=== PATIENT | male | born 1945 | race African-American/Black ===

== ENCOUNTER 2016-08-30 10:09 | Day surgery (SDC) | payer MEDICARE, OTHER ==
[~2016-08-30] VITALS: Ht 170.2 cm; Wt 67.1 kg
[2016-08-30] VITALS (10 sets, daily range): BP systolic 108–119; BP diastolic 67–85; PULSE 50–102; RESP 13–20; Ht 170.2 cm; Wt 67.1 kg
[~2016-08-30 10:09] MED LIST: ADV10050 INH; ALBU8.5H3 INH; ASPI-535 PO; ATOR40TA68 PO; BACL20TA PO; CLOP75TA27 PO; DEXL60CA2 PO; DOCU-144 PO; FINA5TAB4 PO; FLUT16SP17 NASAL; HYDR-762 PO; ISOS60TA52 PO; KEN25O TOP; LORA-186 PO; METO-448 PO; MUPI30OI TOP; NITR0.4T6 SL; NYST1000 PO; OMEG-135 PO; RANI150T5 PO; RANO10002 PO; SOD CHLORIDE 0.9% 1,000 ML IV SCH; TAMS0.4C2 PO; TIOT18CA INH; ZOLP10TA PO
[2016-08-30] MEDS ORDERED: GABA100C14 PO (10:49)
[2016-08-30 11:35] LABS: ADD SCAN DIFF NO
[2016-08-30 11:44] LABS: BASOPHILS % 0.8 % (0.0-2.0); EOSINOPHILS # 0.1 10^3/ul (0.0-0.5); EOSINOPHILS % 2.5 % (0.0-7.0); HEMATOCRIT 42.4 % (42.0-52.0); HEMOGLOBIN 14.6 g/dl (14.0-18.0); LYMPHOCYTES # 1.3 10^3/ul (0.8-2.9); LYMPHOCYTES % 24.8 % (15.0-51.0); MEAN CORPUSCULAR HGB CONC 34.4 g/dl (32.0-37.0); MEAN PLATELET VOLUME 9.8 fl (7.4-10.4); MONOCYTE # 0.6 10^3/ul (0.3-0.9); MONOCYTES % 10.6 % (0.0-11.0); NEUTROPHIL # 3.2 10^3/ul (1.6-7.5); NEUTROPHILS % 60.9 % (39.0-77.0); PLATELET COUNT 201 10^3/UL (140-415); RED BLOOD COUNT 4.71 10^6/ul (4.70-6.10); RED CELL DISTRIBUTION WIDTH 13.3 % (11.5-14.5); WHITE BLOOD COUNT 5.2 10^3/ul (4.8-10.8)
[2016-08-30 11:54] LABS: INR 0.93; PROTIME 12.5 Sec (12.2-14.2)
[2016-08-30 11:55] LABS: PARTIAL THROMBOPLASTIN TIME 32.1 Sec (25.0-35.0)
[2016-08-30 12:00] LABS: CREATINE KINASE 98 IU/L (23-200)
[2016-08-30 12:13] LABS: CK-MB 0.72 ng/ml (0.0-2.4); TROPONIN-I < 0.012 ng/ml (0.00-0.12)
[2016-08-30] MEDS ORDERED: LIDOCAINE 1% (MDV) 20 ML INJ ONE (13:08)
[2016-08-30] MEDS ORDERED: MIDAZOLAM 1 MG/ML 2 ML INJ ONE (13:08)
[2016-08-30] MEDS ORDERED: FENTAnyl 50 MCG/ML VIAL ONE (13:08)
[2016-08-30] MEDS ORDERED: IODIXANOL LOCM 100 ML BTL ONE (13:08)
[2016-08-30] MEDS ORDERED: NITROGLYCERIN (IC) 100 MCG/ML INJ ONE (13:37)
[2016-08-30] MEDS ORDERED: VERAPAMIL 5 MG INJ ONE (13:37)
[2016-08-30] MEDS ORDERED: SOD CHLORIDE 0.9% 1,000 ML IV SCH (13:53)
--- NOTE | 2016-08-30 14:04 | OPR ---
Date/Time of Note Date/Time of Note DATE: 08/30/16 TIME: 13:56 Operative Report Procedure Date: Aug 30, 2016 Operative\Procedure Findings Procedure performed: 1. Left heart catheterization, selective right and left coronary angiogram 2. right femoral angiogram and closure of the right femoral artery using a Starclose device 3. moderate sedation for more than 45 minutes. Transmission Systems Operator: Rhonda Hill MD Indication:: Severe dyspnea on exertion chest pain and poor exercise tolerance abnormal stress test known coronary artery disease Findin. Left main coronary artery: Is large and severely aneurysmal with no significant obstructive disease 2. Left anterior descending artery: Its a very large and aneurysmal vessel and goes around the apex. It has nonobstructive stenosis proximally, and nonobstructive stenosis of the mid LAD but severely aneurysmal with poor flow due to aneurysm 3. Left circumflex artery: Is nondominant. It has 30 % stenosis. It is tortuous 4. Right coronary artery: Is a dominant vessel. It has severe aneurysmal disease proximally and patent stent at the distal RCA and posterolateral artery 5. Ramus intermediate is a moderate sized vessel with no flow-limiting obstruction 6. LV pressure: 113/10; Aortic pressure by pull back is 117/66 ejection fraction is about 50% with basal inferior wall hypokinesis. Written informed consent with obtained after risks benefits and alternatives discussed with the patient in detail. risks including but not limited to risk of infection vascular complications, bleeding complications, PR stroke arrhythmia renal failure at even were discussed with the patient in detail. Patient was brought into the cardiac sugar laboratory assistant and placed in supine position. Right and left groin area was prepped and draped in regular sterile fashion and then he was in anesthetized using 1% lidocaine. Right femoral artery was cannulated and using modified seldinger technique a 6 Azeri sheath was placed in the right femoral artery. Right femoral angiogram was performed. JL4 catheter was advanced and engaged into the left main coronary artery and angiographic view was obtained. The JR4 catheter was advanced and engaged right coronary artery angiographic view was obtained. Pigtail was advanced to engage the left ventricle hemodynamics was recorded, LV gram was done and by pullback aortic pressure was measured Right femoral artery was closed using a Star close device. Manual pressure was applied Patient tolerated procedure well with no complication. Patient is to be transferred to recovery room in stable condition. contrast used: 50 cc Conclusions: Severely aneurysmal disease with no flow-limiting obstruction Recommendations: Aggressive medical therapy RHONDA HILL MD Aug 30, 2016 14:03
[2016-08-30] MEDS ORDERED: morphine 2 MG INJ IV PRN (16:00)
== END 2016-08-30 18:14 | disposition home or self-care (01) ==
LOC: SDS 10:09
PROVIDERS: ATTEND Internal Medicine Interventional Cardiology
DX: I25.10 Atherosclerotic heart disease of native coronary artery without angina pectoris (principal); R94.39 Abnormal result of other cardiovascular function study; E78.5 Hyperlipidemia, unspecified; I10 Essential (primary) hypertension; J44.9 Chronic obstructive pulmonary disease, unspecified
CPT/HCPCS: 82550; 82553; 84484; 85025; 85610; 85730; 93458; C1760; C1769; C1887; C1894; J1644; J2250; J2270; J3010; Q9967

== ENCOUNTER → 2016-09-05 | Outpatient (CLI) | payer MEDICARE, OTHER ==
[~2016-09-05] MED LIST changes: +GABA100C14 PO; -KEN25O TOP; -MUPI30OI TOP; -NYST1000 PO; -SOD CHLORIDE 0.9% 1,000 ML IV SCH
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
== END | disposition home or self-care (01) ==
LOC: C/S 16:42
PROVIDERS: ATTEND Internal Medicine Pulmonary Disease
DX: R06.02 Shortness of breath (principal); J44.9 Chronic obstructive pulmonary disease, unspecified
CPT/HCPCS: 71250

== ENCOUNTER → 2017-03-02 | Outpatient (CLI) | END | disposition home or self-care (01) ==

== ENCOUNTER 2017-03-30 19:52 | Inpatient (IN) | END 2017-04-10 19:42 | DRG 871 ==

== ENCOUNTER 2018-08-28 11:22 | Observation (INO) | payer MEDICARE, OTHER ==
[~2018-08-28] VITALS: Ht 157.5 cm; Wt 70.0 kg
[~2018-08-28 11:22] MED LIST changes: -ADV10050 INH; +ALBU2.5V3 NEB; -ALBU8.5H3 INH; +ALBU90AE INHALATION; -ASPI-535 PO; +BUDE6HFA INHALATION; -CLOP75TA27 PO; -DOCU-144 PO; +DOCU-159 PO; +FLUC100T PO; +HYDR-3980 PO; -HYDR-762 PO; +ISOS60TA PO; -ISOS60TA52 PO; -LORA-186 PO; -METO-448 PO; +METO5TAB2 PO; -NITR0.4T6 SL; -RANI150T5 PO; +RIVA15TA PO; -TIOT18CA INH; +TIOT18CA INHALATION; -ZOLP10TA PO; +ZOLP10TA5 PO
[2018-08-28 11:32] VITALS: Ht 157.5 cm; Wt 70.0 kg
--- NOTE | 2018-08-28 12:58 | ERD ---
ER Documentation Chief Complaint Chief Complaint CWP X 4 DAYS HPI This is a 73-year-old male with a past medical history of hypertension, hyperlipidemia, coronary artery disease with a previous NV status post stenting, previous PE on Xarelto, peripheral vascular disease, COPD who is presenting with 4 days of waxing and waning sharp aching left-sided chest radiating to the back pain. The patient denies any diaphoresis. He denies shortness of breath. He has not been lightheaded or dizzy. He denies any nausea or vomiting. The patient denies feeling sick recently. The patient denies fever or chills. The patient has had no headache or vision changes. The patient does not endorse neck or back pain. The patient denies abdominal pain. The patient denies changes to bowel movements or urination. The patient has had no focal deficits. The patient has had no weakness or numbness or tingling to the face or extremities. ROS All systems reviewed and are negative except as per history of present illness. Medications Home Meds Reported Medications Baclofen* (Baclofen*) 20 Mg Tablet, 20 MG PO BID, TAB 08/28/18 Ipratropium-Albuterol (Ipratropium-Albuterol) 0.5-3 Mg/3 Ml Ampul.neb, 3 ML INHALATION DAILY, #30 VIAL 08/28/18 Dexlansoprazole (Dexilant) 60 Mg Cap., 60 MG PO DAILY, #30 CAP 08/28/18 Ranitidine Hcl* (Ranitidine Hcl*) 300 Mg Tablet, 300 MG PO HS, #30 TAB 08/28/18 Ondansetron Hcl* (Zofran*) 4 Mg Tab, 4 MG PO Q6H PRN for NAUSEA AND OR VOMITING, TAB 08/28/18 Fluticasone-Vilanterol (Breo Ellipta Inhaler) 100-25 Mcg/Actuation Aer.powFaridaba, 1 PUFF INHALATION DAILY, #1 INHALER 08/28/18 Finasteride* (Finasteride*) 5 Mg Tablet, 5 MG PO DAILY, TAB 08/28/18 Tamsulosin Hcl* (Flomax*) 0.4 Mg Cap.er.24h, 0.4 MG PO BID, CAP 08/28/18 Fluticasone Propionate* (Fluticasone Propionate* Nasal) 50 Mcg/[place] - 16 Gm [place].susp, 1 SPRAY NASAL DAILY, #1 BOTTLE TO EACH NOSTRIL 08/28/18 Tiotropium [place]* (Spiriva*) 18 Mcg Cap.w.dev, 1 CAP INHALATION DAILY, #30 CAP 08/28/18 Pantoprazole* (Pantoprazole*) 40 Mg Tablet.dr, 40 MG PO AC BREAKFAST, TAB 08/28/18 Gabapentin* (Gabapentin*) 100 Mg Capsule, 100 MG PO DAILY, #90 CAP 08/28/18 Rivaroxaban* (Xarelto*) 20 Mg Tablet, 20 MG PO WITH DINNER, TAB 08/28/18 Albuterol Sulfate* (Ventolin HFA*) 18 Gm Hfa.aer.ad, 2 PUFF INHALATION Q4H, #1 INHALER 08/28/18 Atorvastatin* (Atorvastatin*) 40 Mg Tablet, 40 MG PO QHS, #30 TAB 08/28/18 Metoprolol Succinate* (Toprol XL*) 25 Mg Tab.sr.24h, 12.5 MG PO DAILY, #30 TAB 08/28/18 Hydrocodone/Acetaminophen (Kim 10-325 Tablet) 1 Each Tablet, 1 EACH PO BID, TAB 08/28/18 Zolpidem Tartrate* (Zolpidem Tartrate*) 10 Mg Tablet, 10 MG PO QHS PRN for INSOMNIA, #30 TAB 08/28/18 Lorazepam* (Lorazepam*) 1 Mg Tablet, 1 MG PO BID PRN for ANXIETY, #30 TAB 08/28/18 Ranolazine* (Ranexa*) 1,000 Mg Tab.sr.12h, 1000 MG PO Q12, TAB 08/28/18 Cholecalciferol* (Vitamin D*) 400 Unit Tablet, 400 UNIT PO DAILY, TAB 08/28/18 Discontinued Reported Medications Docusate Sodium* (Docusate Sodium*) 100 Mg Capsule, 1 CAP PO DAILY, #30 CAP 03/30/17 Gabapentin* (Gabapentin*) 100 Mg Capsule, 100 MG PO QHS, #90 CAP 03/30/17 Metoclopramide Hcl* (Metoclopramide Hcl*) 5 Mg Tablet, 5 MG PO Q6H PRN for NAUSEA AND OR VOMITING, TAB 03/30/17 Zolpidem Tartrate* (Zolpidem Tartrate*) 10 Mg Tablet, 10 MG PO QHS PRN for INSOMNIA, #30 TAB 03/30/17 Jay-3 Fatty Acids/Fish Oil (Fish Oil 1,000 mg Capsule) 1 Each Capsule, 2 EACH PO DAILY, CAP 03/30/17 Albuterol Sulfate* (Albuterol Sulfate* Neb) 0.083%-3 Ml Neb, 2.5 MG NEB QID PRN for WHEEZING AND SOB, #30 VIAL 03/30/17 Tiotropium [place]* (Spiriva*) 18 Mcg Cap.w.dev, 1 CAP INHALATION DAILY, #30 CAP 03/30/17 Albuterol Sulfate (Proair Respiclick) 90 Mcg Aer.pow.ba, 2 PUFFS INHALATION NEEDED, BOTTLE 03/30/17 Budesonide-Formoterol Fumarate* (Symbicort*) 160-4.5 Hfa.aer.ad, 2 PUFF INHALATION BID, #1 EACH 03/30/17 Fluticasone Propionate* (Fluticasone Propionate* Nasal) 50 Mcg/[place] - 16 Gm [place].susp, 2 SPRAY NASAL BID, #1 BOTTLE TO EACH NOSTRIL 03/30/17 Dexlansoprazole (Dexilant) 60 Mg , 60 MG PO DAILY, #30 CAP 03/30/17 Baclofen* (Baclofen*) 20 Mg Tablet, 20 MG PO BID, TAB 03/30/17 Hydrocodone/Acetaminophen (Kim 10-325 Tablet) 1 Each Tablet, 1 EACH PO NEEDED, TAB 03/30/17 Finasteride* (Finasteride*) 5 Mg Tablet, 5 MG PO DAILY, TAB TAKE 1 OR 2 TIMES A DAY 03/30/17 Tamsulosin Hcl* (Tamsulosin Hcl*) 0.4 Mg Cap.er.24h, 0.4 MG PO DAILY, CAP TAKE 1 OR 2 TIMES A DAY 03/30/17 Isosorbide Mononitrate* (Isosorbide Mononitrate*) 60 Mg Tab.er.24h, 60 MG PO DAILY, TAB 03/30/17 Atorvastatin* (Atorvastatin*) 40 Mg Tablet, 40 MG PO QHS, #30 TAB 03/30/17 Ranolazine* (Ranexa*) 1,000 Mg Tab.sr.12h, 1000 MG PO Q12, TAB 03/30/17 Discontinued Scripts Rivaroxaban* (Xarelto*) 15 Mg Tablet, 15 MG PO BID WITH MEALS for 21 Days, #42 TAB Prov:AMANDA JONES 04/07/17 Fluconazole* (Diflucan*) 100 Mg Tablet, 100 MG PO DAILY for 30 Days, #30 TAB Prov:AMANDA JONES 04/07/17 Allergies Allergies: Coded Allergies: No Known Allergies (Verified Allergy, Mild, 08/28/18) PMhx/Soc History of Surgery: Yes (CARDIAC STENTS X3, HIP SURGERY, BACK & LEFT KNEE SX, HERNIA REPAIR) Anesthesia Reaction: No Hx Neurological Disorder: No Hx Respiratory Disorders: Yes (COPD, PE) Hx Cardiac Disorders: Yes (NV, HTN, DYSLIPIDEMIA, PVD) Hx Psychiatric Problems: No Hx Miscellaneous Medical Probl: Yes (See EMR) Hx Alcohol Use: No Hx Substance Use: No Hx Tobacco Use: Yes FmHx Family History: No diabetes Physical Exam Vitals Vital Signs Date Temp Pulse Resp B/P (MAP) Pulse Ox O2 O2 Flow FiO2 Time Delivery Rate 08/28/18 98.7 77 20 144/99 99 Room Air 17:28 (114) 08/28/18 69 18 133/106 99 Room Air 15:00 (115) 08/28/18 58 20 119/97 99 Room Air 14:00 (104) 08/28/18 Nasal 2 13:01 Cannula 08/28/18 70 21 138/95 99 Room Air 13:00 (109) 08/28/18 98.1 81 18 137/94 99 11:32 (108) Physical Exam Const: No apparent distress, well-developed, well-nourished Head: Normocephalic, Atraumatic Eyes: Normal Conjunctiva. Extraocular movements intact. Pupils equal, round and reactive to light ENT: Normal External Ears, Nose. Dry mucous membranes. Neck: Full range of motion. No meningismus. Resp: Clear to auscultation bilaterally, No wheezes, rales or rhonchi Cardio: Regular rate and rhythm. No murmurs, rubs or gallops Abd: Soft, non tender, non distended. Normal bowel sounds Skin: No petechiae or rashes Back: No midline tenderness. No CVA tenderness Ext: No cyanosis, or edema Neur: Awake and alert, oriented 4. Cranial nerves intact. No facial droop. Normal strength, sensation and coordination. Psych: Normal Mood and Affect Result Diagram: 08/28/18 1250 08/28/18 1250 Results 24 hrs Laboratory Tests Test 08/28/18 12:50 White Blood Count 5.0 10^3/ul Red Blood Count 4.64 10^6/ul Hemoglobin 11.8 g/dl Hematocrit 36.0 % Mean Corpuscular Volume 77.6 fl Mean Corpuscular Hemoglobin 25.4 pg Mean Corpuscular Hemoglobin Concent 32.8 g/dl Red Cell Distribution Width 15.9 % Platelet Count 197 10^3/UL Mean Platelet Volume 9.6 fl Immature Granulocytes % 1.000 % Neutrophils % 61.6 % Lymphocytes % 24.4 % Monocytes % 11.2 % Eosinophils % 1.0 % Basophils % 0.8 % Nucleated Red Blood Cells % 0.0 /100WBC Immature Granulocytes # 0.050 10^3/ul Neutrophils # 3.1 10^3/ul Lymphocytes # 1.2 10^3/ul Monocytes # 0.6 10^3/ul Eosinophils # 0.1 10^3/ul Basophils # 0.0 10^3/ul Nucleated Red Blood Cells # 0.0 10^3/ul Sodium Level 140 mmol/L Potassium Level 4.7 mmol/L Chloride Level 107 mmol/L Carbon Dioxide Level 28 mmol/L Anion Gap 5 Blood Urea Nitrogen 14 mg/dl Creatinine 1.56 mg/dl Est Glomerular Filtrat Rate mL/min mL/min Glucose Level 91 mg/dl Calcium Level 9.0 mg/dl Troponin I < 0.012 ng/ml B-Type Natriuretic Peptide 93 PG/ML Current Medications Medications Dose Sig/Camilla Start Time Status Last (Trade) Ordered Route PRN Stop Time Admin Dose Reason Admin Sodium 100 ml @ ud STK-MED 08/28/18 DC 08/28/18 Chloride ONCE .ROUTE 13:53 08/28/18 14:13 13:54 Iohexol 150 ml STK-MED 08/28/18 DC 08/28/18 (Omnipaque ONCE .ROUTE 13:53 08/28/18 14:13 300mg/ ml) 13:54 Ondansetron 4 mg ER BRIDGE 08/28/18 HCl (Zofran PRN IV 16:00 Inj) NAUSEA/VOMITI 08/29/18 15:59 NG 650 mg ER BRIDGE 08/28/18 Acetaminophen PRN PO 16:00 (Tylenol .MILD PAIN 08/29/18 15:59 Tab) 1-3 OR TEMP 40 mg QHS PO 08/28/18 Atorvastatin 21:00 Calcium (Lipitor) Baclofen 20 mg BID PO 08/28/18 (Lioresal) 21:00 400 units DAILY PO 08/29/18 Cholecalcifer 09:00 ol (Vitamin D) Finasteride 5 mg DAILY PO 08/29/18 (Proscar) 09:00 Fluticasone 1 spray BID NASAL 08/28/18 Propionate 21:00 (Flonase 0.05% Nasal) 1 inh DAILY INH 08/29/18 Fluticasone/ 09:00 Vilanterol (Breo Ellipta 100-25 Mcg Inh) Gabapentin 100 mg DAILY PO 08/29/18 (Neurontin) 09:00 1 tab BID PO 08/28/18 Acetaminophen 21:00 / Hydrocodone Bitart (Kim (10/325)) Albuterol/ 3 ml Q4H RESP 08/28/18 Ipratropium THERAPY PRN 16:30 (Duoneb) NEB SHORTNESS OF BREATH Lorazepam 1 mg BID PRN 08/28/18 (Ativan) PO ANXIETY 16:30 Metoprolol 12.5 mg DAILY PO 08/29/18 Succinate 09:00 (Toprol Xl) 40 mg AC 08/29/18 Pantoprazole BREAKFAST 07:00 (Protonix PO Tab) Ranitidine 300 mg HS PO 08/28/18 DC HCl 21:00 08/28/18 (Zantac) 21:00 Ranolazine 1,000 mg Q12 PO 08/28/18 (Ranexa) 21:00 Rivaroxaban 20 mg WITH 08/28/18 (Xarelto) DINNER PO 18:00 Tamsulosin 0.4 mg BID PO 08/28/18 HCl 21:00 (Flomax) Tiotropium 1 inh DAILY INH 08/29/18 [place] 09:00 (Spiriva) Zolpidem 10 mg QHS PRN 08/28/18 Tartrate PO INSOMNIA 16:30 (Ambien) Amoxicillin 500 mg BID PO 08/28/18 21:00 (Amoxicillin) Sodium 1,000 ml @ [id number] IV 08/28/18 Chloride 75 mls/hr 16:24 IV Flush 3 ml PER 08/28/18 (NS 3 ml) PROTOCOL IV 16:30 Ondansetron 4 mg Q6H PRN 08/28/18 HCl (Zofran IV 16:30 Inj) NAUSEA/VOMITI NG 650 mg Q6H PRN 08/28/18 Acetaminophen PO .PAIN 1-3 16:30 (Tylenol OR TEMP Tab) 1 tab Q6H PRN 08/28/18 Acetaminophen PO .PAIN 4-6 16:30 / Hydrocodone Bitart (Kim (5/325)) Morphine 2 mg Q4H PRN 08/28/18 Sulfate IV .PAIN 16:30 (morphine) 7-10 Docusate 100 mg Q12H PRN 08/28/18 DC Sodium PO 16:30 08/28/18 (Colace) .CONSTIPATION 16:31 Magnesium 30 ml DAILY PRN 08/28/18 Hydroxide PO 16:30 (Milk Of Mag) .CONSTIPATION Sodium 2 spray BID PRN 08/28/18 Chloride NASAL 16:30 ([place]) congestion 1 tab Q5M PRN 08/28/18 Nitroglycerin SL ANGINA 16:30 (Nitroglyceri n (Sl Tab) 0.4 Mg) 1 tab BID PO 08/28/18 Senna/Docusat 21:00 e Sodium (Senokot-S) Procedures/MDM MDM The patient's presentation warrants further investigation. Previous medical records, if available, were reviewed. LABS The patient's laboratory testing was obtained and reviewed. No emergent treatment was required unless described below. CBC: Microcytic anemia, not emergent. No E/o systemic infection or thrombocytopenia Chemistry: No E/o severe acidosis or alkalosis or liver disease or diabetic ketoacidosis. Elevated creatinine indicating mild acute kidney injury. Troponin: No E/o acute ischemia BNP: No E/o heart failure EKG EKG read by me: Rate/Rhythm: Regular rate and rhythm at a rate of 81 bpm Intervals: Normal [place]: Normal Impression: No evidence of acute ischemia or arrhythmia IMAGING Imaging and Radiology interpretation reviewed. CXR FINDINGS: The cardiomediastinal silhouette is within normal limits. No focal pulmonary consolidations. There is no evidence of significant pleural effusion or pneumothorax. There are degenerative changes of the spine. Redemonstrated left shoulder arthroplasty. IMPRESSION: No radiographic evidence of acute cardiopulmonary disease. Electronically viewed and signed by Cam Mayers Physician on 08/28/2018 13:18 CTA Chest COMPARISON: CT CHEST 03/20/2018; CT CHEST 08/31/2017; CT CHEST 05/10/2017; CT CHEST 03/02/2017 FINDINGS: PULMONARY ARTERIES: Normal. No pulmonary embolism. AORTA: No acute findings. No thoracic aortic aneurysm. LUNGS: Advanced bullous emphysematous changes of the lungs is stable. No mass. PLEURAL SPACE: Normal. No significant effusion. No pneumothorax. HEART: Normal. No cardiomegaly. No significant pericardial effusion. No evidence of RV dysfunction. BONES/JOINTS: Left shoulder arthroplasty in place. Degenerative disk changes of the spine are present. No acute fracture. No dislocation. SOFT TISSUES: Normal. LYMPH NODES: Normal. No enlarged lymph nodes. KIDNEYS AND URETERS: Mild bilateral extrarenal pelvises. STOMACH AND BOWEL: Moderate retained feces throughout the transverse colon consistent with constipation. IMPRESSION: 1. Advanced bullous emphysematous changes of the lungs is stable. 2. Moderate retained feces throughout the transverse colon consistent with constipation. 3. Left shoulder arthroplasty in place. 4. No evidence of pulmonary emboli, aortic aneurysm or dissection. Electronically viewed and signed by .Mynor Forrest MD, MD on 08/28/2018 14:39 TREATMENT/DISPOSITION The patient presents with chest pain radiating to the back. He has a significant cardiac history including previous NV as well as previous extensive PE. The patient is followed by Dr. Baez and Dr. Sandoval. The patient's troponin and EKG are reassuring. Repeat troponin testing remains normal. I have very low suspicion for acute coronary syndrome. However, I was concerned about the possibility of a recurrent or worsening pulmonary embolism. The CTA revealed no evidence of PE or aortic aneurysm or dissection. I spoke with Dr. Sandoval regarding admission versus discharge of the patient. Despite the reassuring work-up, he felt that given his significant history, the patient would benefit from admission for more urgent evaluation by his specialists in the hospital. I do agree at this time. The patient's imaging studies reveal COPD, but otherwise does not demonstrate any emergent diagnoses. It does not reveal pneumonia or pneumothorax or pleural effusions or pulmonary edema. The patient does not have pneumomediastinum or signs concerning for esophageal tear or rupture. The patient has no clinical or radiographic signs of pericardial effusion or tamponade. The patient does not have pneumoperitoneum and I have decreased suspicion of viscus perforation as possible referred pain. The patient does not have a history of heart failure and I have low suspicion for this. ADMISSION At this time, I feel that the patient requires admission for further evaluation and management. The patient will be admitted to Panel in accordance with the patient's insurance. The patient was accepted by Dr. Mcneil to telemetry. Dr. Sandoval will evaluate the patient in the hospital. Dr. Mcneil will consult Dr. Baez from cardiology. Disclaimer: Inadvertent spelling and grammatical errors are likely due to EHR/dictation software use and do not reflect on the overall quality of patient care. Note that the electronic time recorded on this note does not necessarily reflect the actual time of the patient encounter. Departure Diagnosis: Primary Impression: Chest pain Chest pain type: unspecified Qualified Codes: R07.9 - Chest pain, unspecified Additional Impressions: Acute kidney injury Microcytic anemia Condition: Serious JAKE CORDOVA MD Aug 28, 2018 12:45
[2018-08-28] MEDS ORDERED: CHOL400T10 PO (13:26)
[2018-08-28] MEDS ORDERED: RANO10002 PO (13:26)
[2018-08-28] MEDS ORDERED: LORA1TAB PO (13:27)
[2018-08-28] MEDS ORDERED: ZOLP10TA5 PO (13:27)
[2018-08-28] MEDS ORDERED: HYDR-3980 PO (13:28)
[2018-08-28] MEDS ORDERED: ATOR40TA68 PO (13:29)
[2018-08-28] MEDS ORDERED: METO-335 PO (13:29)
[2018-08-28] MEDS ORDERED: RIVA20TA5 PO (13:30)
[2018-08-28] MEDS ORDERED: ALBU18HF INHALATION (13:30)
[2018-08-28] MEDS ORDERED: PANT40TA4 PO (13:31)
[2018-08-28] MEDS ORDERED: GABA100C14 PO (13:31)
[2018-08-28] MEDS ORDERED: TIOT18CA INHALATION (13:32)
[2018-08-28] MEDS ORDERED: TAMS-14 PO (13:33)
[2018-08-28] MEDS ORDERED: FLUT16SP17 NASAL (13:33)
[2018-08-28] MEDS ORDERED: FINA5TAB4 PO (13:34)
[2018-08-28] MEDS ORDERED: FLUT1AER INHALATION (13:34)
[2018-08-28] MEDS ORDERED: RANI300T PO (13:35)
[2018-08-28] MEDS ORDERED: ONDA4TAB13 PO (13:35)
[2018-08-28] MEDS ORDERED: DEXL60CA2 PO (13:36)
[2018-08-28] MEDS ORDERED: IOHEXOL 300MG/ML 150 ML BTL ONE (13:53)
[2018-08-28] MEDS ORDERED: SOD CHLORIDE 0.9% 100 ML ONE (13:53)
[2018-08-28] MEDS ORDERED: IPRA3AMP29 INHALATION (15:52)
[2018-08-28] MEDS ORDERED: BACL20TA PO (15:53)
[2018-08-28] MEDS ORDERED: ONDANSETRON 4 MG INJ IV PRN ×2 (16:00→16:30)
[2018-08-28] MEDS ORDERED: ACETAMINOPHEN 325 MG TAB PO PRN ×2 (16:00→16:30)
[2018-08-28] MEDS ORDERED: MAGNESIUM HYDROXIDE 30ML CUP PO PRN (16:30)
[2018-08-28] MEDS ORDERED: morphine 2 MG INJ IV PRN (16:30)
[2018-08-28] MEDS ORDERED: NACL 0.9% 3 ML SYG IV SCH (16:30)
[2018-08-28] MEDS ORDERED: NITROGLYCERIN (SL) 0.4 MG TAB SL PRN (16:30)
[2018-08-28] MEDS ORDERED: SALINE 0.65% 45 ML NAS SPRAY NASAL PRN (16:30)
[2018-08-28] MEDS ORDERED: HYDROCODONE/APAP (5/325) TAB PO PRN (16:30)
[2018-08-28] MEDS ORDERED: ALBUTEROL/IPRATROPIUM (NEB) 3 ML AMP NEB PRN (16:30)
[2018-08-28] MEDS ORDERED: LORAZEPAM 1 MG TAB PO PRN (16:30)
[2018-08-28] MEDS ORDERED: DOCUSATE SODIUM 100 MG CAP PO PRN (16:30)
[2018-08-28] MEDS ORDERED: ZOLPIDEM 5 MG TAB PO PRN (16:30)
--- NOTE | 2018-08-28 16:49 | HP ---
Date/Time of Note Date/Time of Note DATE: 08/28/18 TIME: 16:28 Assessment/Plan VTE Prophylaxis SCD applied (from Nsg): Yes Pharmacological prophylaxis: rivaroxaban Lines/Catheters IV Catheter Type (from Nrsg): Saline Lock Assessment/Plan Assessment/Plan 1. Acute chest pain - most likely musculoskeletal in nature - initial troponin negative and will trend - EKG negative for acute ST changes - Cardiology consulted for evaluation in setting of known heart disease - Nitro, morphine, O2 PRN 2. Acute sinusitis - appears to have been lingering for 1.5 months. Sees ENT as outpatient but has not been seen since these symptoms started - Will started on Amoxicillin and continue on nasal sprays - monitor for improvement 3. Acute shortness of breath - CTA chest noted with emphysematous changes but no dissection or PE noted - Pulmonology consultation placed for further evaluation - will continue PRN nebs 4. Acute renal failure - most likely secondary to prerenal given patient appears dehydrated - will give gentle fluids and avoid nephrotoxic agents - monitor for improvement 5. ambulatory dysfunction - PT/OT 6. h/o COPD - continue home bronchodilators - no wheezing appreciated so doubt exacerbation 7. HTN - continue home medications 8. CAD s/p PCI - continue home medications 9. h/o PE - CTA negative for PE - Will defer to Pulm on need for Xarelto 10. Anemia - will check iron levels - no need for transfusions at this time 11. Diet - Cardiac 12. DVT ppx - Xarelto 13. Disposition - Admit to telemetry for chest pain workup and evaluation of shortness of breath Result Diagram: 08/28/18 1250 08/28/18 1250 Results 24hrs Laboratory Tests Test 08/28/18 12:50 White Blood Count 5.0 # Red Blood Count 4.64 #L Hemoglobin 11.8 L Hematocrit 36.0 #L Mean Corpuscular Volume 77.6 L Mean Corpuscular Hemoglobin 25.4 L Mean Corpuscular Hemoglobin Concent 32.8 Red Cell Distribution Width 15.9 H Platelet Count 197 # Mean Platelet Volume 9.6 Immature Granulocytes % 1.000 H Neutrophils % 61.6 Lymphocytes % 24.4 Monocytes % 11.2 H Eosinophils % 1.0 Basophils % 0.8 Nucleated Red Blood Cells % 0.0 Immature Granulocytes # 0.050 H Neutrophils # 3.1 Lymphocytes # 1.2 Monocytes # 0.6 Eosinophils # 0.1 Basophils # 0.0 Nucleated Red Blood Cells # 0.0 Sodium Level 140 Potassium Level 4.7 Chloride Level 107 Carbon Dioxide Level 28 Anion Gap 5 Blood Urea Nitrogen 14 Creatinine 1.56 H Est Glomerular Filtrat Rate mL/min Glucose Level 91 Calcium Level 9.0 Troponin I < 0.012 B-Type Natriuretic Peptide 93 HPI/ROS Admit Date/Time Admit Date/Time 08/28/18 Hx of Present Illness 73 yo M with PMH HTN, CAD s/p PCI, HLD, PE on Xarelto, PVD, COPD presented to ED with worsening left sided chest discomfort radiating to his back. patient states the pain has been constant over the past 4-5 days. Worse with movement and activity, better after nitro and rest. Patient does admit to associate shortness of breath, nausea, and dizziness. Patient admits to constipation and some burning with urination. He denies any loss of consciousness or vomiting. Patient admits to fevers up to 103 with shortness of breath and general malaise about 1.5 months ago. He called Dr. Wallis office who prescribed a Zpack and Medrol dose pack with improvement in respiratory function. He admits to nasal congestion, facial pressure, and post nasal drip as well. Patient states he never really recovered and about 2 weeks ago was experiencing difficulty ambulat ing with worsening dyspnea on exertion. He was evaluated in the ED and CTA was performed which was negative for PE, dissection, or infectious cause. Patient was noted with negative initial troponin, EKG negative for acute ST changes, and no signs of CHF. Dr. Sandoval requested admission for cardiac and pulmonary evaluation. ROS All 12 systems reviewed and pertinent positives as per HPI. All others negative. Constitutional: fatigue, nausea Eyes: No discharge ENT: congestion, other (post nasal drip) Respiratory: cough, pleuritic pain, shortness of breath; No sputum, No wheezing Cardiovascular: chest pain, lightheadedness; No edema, No palpitations Gastrointestinal: constipation, nausea; No pain, No diarrhea, No vomiting Genitourinary: dysuria Musculoskeletal: back pain Skin: No laceration, No rash Neurologic: No confusion, No focal-weakness, No headache, No syncope Endocrine: dry skin Lymphatic: no complaints Psychological: nl mood/affect Immunologic: no complaints PMH/Family/Social Past Medical History Medical History: coronary artery disease, GERD, high cholesterol, hypertension, other (COPD, h/o PE) Medications Current Medications Ondansetron HCl (Zofran Inj) 4 mg ER BRIDGE PRN IV NAUSEA/VOMITING; Start 08/28/18 at 16:00; Stop 08/29/18 at 15:59 Acetaminophen (Tylenol Tab) 650 mg ER BRIDGE PRN PO .MILD PAIN 1-3 OR TEMP; Start 08/28/18 at 16:00; Stop 08/29/18 at 15:59 Coded Allergies: No Known Allergies (Verified Allergy, Mild, 08/28/18) Past Surgical History Past Surgical Hx: other (PCI, hip surgery, left shoulder surgery, back surgery, hernia repair) Family History Significant Family History: no pertinent family hx Social History Alcohol Use: none Smoking Status: Former smoker Drug Use: none Exam/Review of Systems Vital Signs Vitals Vital Signs Date Temp Pulse Resp B/P (MAP) Pulse Ox O2 O2 Flow FiO2 Time Delivery Rate 08/28/18 Nasal 2 13:01 Cannula 08/28/18 98.1 81 18 137/94 99 11:32 (108) Exam Exam General: She is currently sitting upright in bed in no acute distress. answering questions appropriately HEENT: Atraumatic, normocephalic. The pupils are equal, round and reactive. Extraocular motor are intact. tenderness maxillary and frontal sinus to palpation Neck: Supple with full range of motion. No rigidity or meningismus Chest: left lower chest wall discomfort Lungs: Diminished breath sounds, nonlabored breathing, no wheezing or rhonchi appreciated Heart: Normal S1-S2, Regular rhythm and rate. No murmur, S3, or S4 Abdomen: Soft , nontender, nondistended , bowel sounds are present. No guarding no rebound tenderness , No masses or organomegaly. No costovertebral temporal angle mass Extremities: Normal to inspection, no edema no cyanosis Neurologic: Normal mental status, speech normal, cranial nerves II through XII are intact, motor and sensory are intact, no focal weakness Skin: no rashes or lesions appreciated Additional Comments Home medications reviewed PROCEDURE: XR Chest CLINICAL INDICATION: Chest Pain. . TECHNIQUE: Frontal view of the chest COMPARISON: DR VEGA CHEST 04/10/2017; CT CHEST 04/07/2017; CR CHEST 12/16/2015; FINDINGS: The cardiomediastinal silhouette is within normal limits. No focal pulmonary consolidations. There is no evidence of significant pleural effusion or pneumothorax. There are degenerative changes of the spine. Redemonstrated left shoulder arthroplasty. IMPRESSION: No radiographic evidence of acute cardiopulmonary disease. RPTAT: KK Cam Mayers Physician Date Time Electronically viewed and signed by Cam Mayers Physician on 08/28/2018 13:18 PROCEDURE: CT Angiography Chest With Intravenous Contrast CLINICAL INDICATION: new CP rad to back, previous extensive PE on xarelto TECHNIQUE: Axial computed tomographic angiography images of the chest with intravenous contrast using pulmonary embolism protocol. Sagittal and coronal reformatted images were created and reviewed. CTDIvol (mGy) = 19.7, 11.1; total DLP (mGy- cm) = 443.6. This CT exam was performed using one or more of the following dose reduction techniques: automated exposure control, adjustment of the mA and/or kV according to patient size, and/or use of iterative reconstruction technique. DICOM images are available. 3D and MIP reconstructed images were created and reviewed. CONTRAST: 100 mL of Omnipaque-300 was administered intravenously. COMPARISON: CT CHEST 03/20/2018; CT CHEST 08/31/2017; CT CHEST 05/10/2017; CT CHEST 03/02/2017 FINDINGS: PULMONARY ARTERIES: Normal. No pulmonary embolism. AORTA: No acute findings. No thoracic aortic aneurysm. LUNGS: Advanced bullous emphysematous changes of the lungs is stable. No mass. PLEURAL SPACE: Normal. No significant effusion. No pneumothorax. HEART: Normal. No cardiomegaly. No significant pericardial effusion. No evidence of RV dysfunction. BONES/JOINTS: Left shoulder arthroplasty in place. Degenerative disk changes of the spine are present. No acute fracture. No dislocation. SOFT TISSUES: Normal. LYMPH NODES: Normal. No enlarged lymph nodes. KIDNEYS AND URETERS: Mild bilateral extrarenal pelvises. STOMACH AND BOWEL: Moderate retained feces throughout the transverse colon consistent with constipation. IMPRESSION: 1. Advanced bullous emphysematous changes of the lungs is stable. 2. Moderate retained feces throughout the transverse colon consistent with constipation. 3. Left shoulder arthroplasty in place. 4. No evidence of pulmonary emboli, aortic aneurysm or dissection. RPTAT:GG .Mynor Forrest MD, MD Date Time Electronically viewed and signed by .Mynor Forrest MD, MD on 08/28/2018 14:39 HARPREET LOOMIS MD Aug 28, 2018 16:41
--- NOTE | 2018-08-28 17:26 | CONS ---
Assessment/Plan Assessment/Plan Hospital Course (Demo Recall) 1. Chest pain appears to be nonanginal who is with a myocardial infarction. 2. History of coronary artery disease status post inferior ST elevation myocardial infarction 3. History of PCI of the right coronary artery 4. History of pulmonary embolus on appropriate therapy 5. Hypertension 6. Severe COPD 7. Dyslipidemia under good control Recommendations: We will rule out for myocardial infarction with serial cardiac enzymes. Continue home medications We will do a Lexiscan stress her tomorrow thoracic nonobstructive coronary artery disease Thank you for his referral. We will continue to follow along with you RHONDA TERRY MD [facility] Consultation Date/Type/Reason Admit Date/Time 08/28/18 Date of Consultation: Aug 28, 2018 Type of Consult Cardiology Reason for Consultation chestpain Requesting Provider: HARPREET LOOMIS MD Date/Time of Note DATE: 08/28/18 TIME: 17:22 Hx of Present Illness Interventional cardiology consultation Chief complaint chest pain History of present illness: Thank you for his referral. Physician from the patient from discussion with the physician for review of the old chart. Patient is also very well-known to me from outpatient workup. This is a 73-year-old gentleman with history of severe coronary artery disease status post STEMI/ND/multiple PCI of his right coronary artery who presented to emergency room because of left sided chest pain. Patient said over the past wee k he has had chest pain which is sharp left-sided last for hours worse with movement especially movement on his arm and also with breathing but not related to cough. Is moderate intensity and lasts for hours as mentioned. Allergies no known drug allergies. Medication was reviewed as per medical reconciliation which were personally reviewed. Social history patient has quit smoking. Family say no reported coronary artery disease. Past medical history: Coronary artery disease status post ND status post multiple PCI to his right coronary artery. COPD Dyslipidemia under good control Hypertension with episode of hypotension History of pulmonary embolus on Xarelto Review of system: As above only. Past Medical History Home Meds Reported Medications Baclofen* (Baclofen*) 20 Mg Tablet, 20 MG PO BID, TAB 08/28/18 Ipratropium-Albuterol (Ipratropium-Albuterol) 0.5-3 Mg/3 Ml Ampul.neb, 3 ML INHALATION DAILY, #30 VIAL 08/28/18 Dexlansoprazole (Dexilant) 60 Mg Cap.dr.mp, 60 MG PO DAILY, #30 CAP 08/28/18 Ranitidine Hcl* (Ranitidine Hcl*) 300 Mg Tablet, 300 MG PO HS, #30 TAB 08/28/18 Ondansetron Hcl* (Zofran*) 4 Mg Tab, 4 MG PO Q6H PRN for NAUSEA AND OR VOMITING, TAB 08/28/18 Fluticasone-Vilanterol (Breo Ellipta Inhaler) 100-25 Mcg/Actuation Aer.pow.ba, 1 PUFF INHALATION DAILY, #1 INHALER 08/28/18 Finasteride* (Finasteride*) 5 Mg Tablet, 5 MG PO DAILY, TAB 08/28/18 Tamsulosin Hcl* (Flomax*) 0.4 Mg Cap.er.24h, 0.4 MG PO BID, CAP 08/28/18 Fluticasone Propionate* (Fluticasone Propionate* Nasal) 50 Mcg/[place] - 16 Gm [place].susp, 1 SPRAY NASAL DAILY, #1 BOTTLE TO EACH NOSTRIL 08/28/18 Tiotropium Brogan* (Spiriva*) 18 Mcg Cap.w.dev, 1 CAP INHALATION DAILY, #30 CAP 08/28/18 Pantoprazole* (Pantoprazole*) 40 Mg Tablet.dr, 40 MG PO AC BREAKFAST, TAB 08/28/18 Gabapentin* (Gabapentin*) 100 Mg Capsule, 100 MG PO DAILY, #90 CAP 08/28/18 Rivaroxaban* (Xarelto*) 20 Mg Tablet, 20 MG PO WITH DINNER, TAB 08/28/18 Albuterol Sulfate* (Ventolin HFA*) 18 Gm Hfa.aer.ad, 2 PUFF INHALATION Q4H, #1 INHALER 08/28/18 Atorvastatin* (Atorvastatin*) 40 Mg Tablet, 40 MG PO QHS, #30 TAB 08/28/18 Metoprolol Succinate* (Toprol XL*) 25 Mg Tab.sr.24h, 12.5 MG PO DAILY, #30 TAB 08/28/18 Hydrocodone/Acetaminophen ([place] 10-325 Tablet) 1 Each Tablet, 1 EACH PO BID, TAB 08/28/18 Zolpidem Tartrate* (Zolpidem Tartrate*) 10 Mg Tablet, 10 MG PO QHS PRN for INSOMNIA, #30 TAB 08/28/18 Lorazepam* (Lorazepam*) 1 Mg Tablet, 1 MG PO BID PRN for ANXIETY, #30 TAB 08/28/18 Ranolazine* (Ranexa*) 1,000 Mg Tab.sr.12h, 1000 MG PO Q12, TAB 08/28/18 Cholecalciferol* (Vitamin D*) 400 Unit Tablet, 400 UNIT PO DAILY, TAB 08/28/18 Discontinued Reported Medications Docusate Sodium* (Docusate Sodium*) 100 Mg Capsule, 1 CAP PO DAILY, #30 CAP 03/30/17 Gabapentin* (Gabapentin*) 100 Mg Capsule, 100 MG PO QHS, #90 CAP 03/30/17 Metoclopramide Hcl* (Metoclopramide Hcl*) 5 Mg Tablet, 5 MG PO Q6H PRN for NAUSEA AND OR VOMITING, TAB 03/30/17 Zolpidem Tartrate* (Zolpidem Tartrate*) 10 Mg Tablet, 10 MG PO QHS PRN for INSOM MELVINA, #30 TAB 03/30/17 Volin-3 Fatty Acids/Fish Oil (Fish Oil 1,000 mg Capsule) 1 Each Capsule, 2 EACH PO DAILY, CAP 03/30/17 Albuterol Sulfate* (Albuterol Sulfate* Neb) 0.083%-3 Ml Neb, 2.5 MG NEB QID PRN for WHEEZING AND SOB, #30 VIAL 03/30/17 Tiotropium Brogan* (Spiriva*) 18 Mcg Cap.w.dev, 1 CAP INHALATION DAILY, #30 CAP 03/30/17 Albuterol Sulfate (Proair Respiclick) 90 Mcg Aer.pow.ba, 2 PUFFS INHALATION NEEDED, BOTTLE 03/30/17 Budesonide-Formoterol Fumarate* (Symbicort*) 160-4.5 Hfa.aer.ad, 2 PUFF INHALATION BID, #1 EACH 03/30/17 Fluticasone Propionate* (Fluticasone Propionate* Nasal) 50 Mcg/[place] - 16 Gm [place].susp, 2 SPRAY NASAL BID, #1 BOTTLE TO EACH NOSTRIL 03/30/17 Dexlansoprazole (Dexilant) 60 Mg , 60 MG PO DAILY, #30 CAP 03/30/17 Baclofen* (Baclofen*) 20 Mg Tablet, 20 MG PO BID, TAB 03/30/17 Hydrocodone/Acetaminophen ([place] 10-325 Tablet) 1 Each Tablet, 1 EACH PO NEEDED, TAB 03/30/17 Finasteride* (Finasteride*) 5 Mg Tablet, 5 MG PO DAILY, TAB TAKE 1 OR 2 TIMES A DAY 03/30/17 Tamsulosin Hcl* (Tamsulosin Hcl*) 0.4 Mg Cap.er.24h, 0.4 MG PO DAILY, CAP TAKE 1 OR 2 TIMES A DAY 03/30/17 Isosorbide Mononitrate* (Isosorbide Mononitrate*) 60 Mg Tab.er.24h, 60 MG PO DAILY, TAB 03/30/17 Atorvastatin* (Atorvastatin*) 40 Mg Tablet, 40 MG PO QHS, #30 TAB 03/30/17 Ranolazine* (Ranexa*) 1,000 Mg Tab.sr.12h, 1000 MG PO Q12, TAB 03/30/17 Discontinued Scripts Rivaroxaban* (Xarelto*) 15 Mg Tablet, 15 MG PO BID WITH MEALS for 21 Days, #42 TAB Prov:AMANDA JONES 04/07/17 Fluconazole* (Diflucan*) 100 Mg Tablet, 100 MG PO DAILY for 30 Days, #30 TAB Prov:AMANDA JONES 04/07/17 Medications Current Medications Ondansetron HCl (Zofran Inj) 4 mg ER BRIDGE PRN IV NAUSEA/VOMITING; Start 08/28/18 at 16:00; Stop 08/29/18 at 15:59 Acetaminophen (Tylenol Tab) 650 mg ER BRIDGE PRN PO .MILD PAIN 1-3 OR TEMP; Start 08/28/18 at 16:00; Stop 08/29/18 at 15:59 Atorvastatin Calcium (Lipitor) 40 mg QHS PO ; Start 08/28/18 at 21:00 Baclofen (Lioresal) 20 mg BID PO ; Start 08/28/18 at 21:00 Cholecalciferol (Vitamin D) 400 units DAILY PO ; Start 08/29/18 at 09:00 Finasteride (Proscar) 5 mg DAILY PO ; Start 08/29/18 at 09:00 Fluticasone Propionate (Flonase 0.05% Nasal) 1 spray BID NASAL ; Start 08/28/18 at 21:00 Fluticasone/ Vilanterol (Breo Ellipta 100-25 Mcg Inh) 1 inh DAILY INH ; Start 08/29/18 at 09:00 Gabapentin (Neurontin) 100 mg DAILY PO ; Start 08/29/18 at 09:00 Acetaminophen/ Hydrocodone Bitart ([place] (10/325)) 1 tab BID PO ; Start 08/28/18 at 21:00 Albuterol/ Ipratropium (Duoneb) 3 ml Q4H RESP THERAPY PRN NEB SHORTNESS OF BREATH; Start 08/28/18 at 16:30 Lorazepam (Ativan) 1 mg BID PRN PO ANXIETY; Start 08/28/18 at 16:30 Metoprolol Succinate (Toprol Xl) 12.5 mg DAILY PO ; Start 08/29/18 at 09:00 Pantoprazole (Protonix Tab) 40 mg AC BREAKFAST PO ; Start 08/29/18 at 07:00 Ranolazine (Ranexa) 1,000 mg Q12 PO ; Start 08/28/18 at 21:00 Rivaroxaban (Xarelto) 20 mg WITH DINNER PO ; Start 08/28/18 at 18:00 Tamsulosin HCl (Flomax) 0.4 mg BID PO ; Start 08/28/18 at 21:00 Tiotropium Brogan (Spiriva) 1 inh DAILY INH ; Start 08/29/18 at 09:00 Zolpidem Tartrate (Ambien) 10 mg QHS PRN PO INSOMNIA; Start 08/28/18 at 16:30 Amoxicillin (Amoxicillin) 500 mg BID PO ; Start 08/28/18 at 21:00 Sodium Chloride 1,000 ml @ 75 mls/hr [id number] IV ; Start 08/28/18 at 16:24 IV Flush (NS 3 ml) 3 ml PER PROTOCOL IV ; Start 08/28/18 at 16:30 Ondansetron HCl (Zofran Inj) 4 mg Q6H PRN IV NAUSEA/VOMITING; Start 08/28/18 at 16:30 Acetaminophen (Tylenol Tab) 650 mg Q6H PRN PO .PAIN 1-3 OR TEMP; Start 08/28/18 at 16:30 Acetaminophen/ Hydrocodone Bitart ([place] (5/325)) 1 tab Q6H PRN PO .PAIN 4-6; Start 08/28/18 at 16:30 Morphine Sulfate (morphine) 2 mg Q4H PRN IV .PAIN 7-10; Start 08/28/18 at 16:30 Magnesium Hydroxide (Milk Of Mag) 30 ml DAILY PRN PO .CONSTIPATION; Start 08/28/18 at 16:30 Sodium Chloride ([place]) 2 spray BID PRN NASAL congestion; Start 08/28/18 at 16:30 Nitroglycerin (Nitroglycerin (Sl Tab) 0.4 Mg) 1 tab Q5M PRN SL ANGINA; Start 08/28/18 at 16:30 Senna/Docusate Sodium (Senokot-S) 1 tab BID PO ; Start 08/28/18 at 21:00 Allergies: Coded Allergies: No Known Allergies (Verified Allergy, Mild, 08/28/18) Past Surgical History Past Surgical Hx: other (PCI, hip surgery, left shoulder surgery, back surgery, hernia repair) Social History Alcohol Use: none Smoking Status: Former smoker Drug Use: none Exam/Review of Systems Vital Signs Vitals Vital Signs Date Temp Pulse Resp B/P (MAP) Pulse Ox O2 O2 Flow FiO2 Time Delivery Rate 08/28/18 69 18 133/106 99 Room Air 15:00 (115) 08/28/18 2 13:01 08/28/18 98.1 11:32 Exam Exam General: Thin gentleman in no acute distress HEENT: NC/AT. pupils are equal. round. NECK: NO JVD. no stridor. CV: RRR. systolic murmur; no gallop or rubs. PULM: no wheezing or rhonchi. GI: SOFT, NT, ND, no rebound or guarding Extremity: trace B/L LE edema. no clubbing. neuro: awake and alert, OX3. Psych: calm and pleasant rectal: deferred : normal EKG was reviewed which showed normal sinus rhythm with no evidence of ischemia CT pulmonary angiogram done in the emergency room shows: 1. Advanced bullous emphysematous changes of the lungs is stable. 2. Moderate retained feces throughout the transverse colon consistent with constipation. 3. Left shoulder arthroplasty in place. 4. No evidence of pulmonary emboli, aortic aneurysm or dissection. Labs Result Diagram: 08/28/18 1250 08/28/18 1250 Results 24hrs Laboratory Tests Test 08/28/18 12:50 White Blood Count 5.0 # Red Blood Count 4.64 #L Hemoglobin 11.8 L Hematocrit 36.0 #L Mean Corpuscular Volume 77.6 L Mean Corpuscular Hemoglobin 25.4 L Mean Corpuscular Hemoglobin Concent 32.8 Red Cell Distribution Width 15.9 H Platelet Count 197 # Mean Platelet Volume 9.6 Immature Granulocytes % 1.000 H Neutrophils % 61.6 Lymphocytes % 24.4 Monocytes % 11.2 H Eosinophils % 1.0 Basophils % 0.8 Nucleated Red Blood Cells % 0.0 Immature Granulocytes # 0.050 H Neutrophils # 3.1 Lymphocytes # 1.2 Monocytes # 0.6 Eosinophils # 0.1 Basophils # 0.0 Nucleated Red Blood Cells # 0.0 Sodium Level 140 Potassium Level 4.7 Chloride Level 107 Carbon Dioxide Level 28 Anion Gap 5 Blood Urea Nitrogen 14 Creatinine 1.56 H Est Glomerular Filtrat Rate mL/min Glucose Level 91 Calcium Level 9.0 Troponin I < 0.012 B-Type Natriuretic Peptide 93 Medications Medications Current Medications Ondansetron HCl (Zofran Inj) 4 mg ER BRIDGE PRN IV NAUSEA/VOMITING; Start 08/28/18 at 16:00; Stop 08/29/18 at 15:59 Acetaminophen (Tylenol Tab) 650 mg ER BRIDGE PRN PO .MILD PAIN 1-3 OR TEMP; Start 08/28/18 at 16:00; Stop 08/29/18 at 15:59 Atorvastatin Calcium (Lipitor) 40 mg QHS PO ; Start 08/28/18 at 21:00 Baclofen (Lioresal) 20 mg BID PO ; Start 08/28/18 at 21:00 Cholecalciferol (Vitamin D) 400 units DAILY PO ; Start 08/29/18 at 09:00 Finasteride (Proscar) 5 mg DAILY PO ; Start 08/29/18 at 09:00 Fluticasone Propionate (Flonase 0.05% Nasal) 1 spray BID NASAL ; Start 08/28/18 at 21:00 Fluticasone/ Vilanterol (Breo Ellipta 100-25 Mcg Inh) 1 inh DAILY INH ; Start 08/29/18 at 09:00 Gabapentin (Neurontin) 100 mg DAILY PO ; Start 08/29/18 at 09:00 Acetaminophen/ Hydrocodone Bitart ([place] (10/325)) 1 tab BID PO ; Start 08/28/18 at 21:00 Albuterol/ Ipratropium (Duoneb) 3 ml Q4H RESP THERAPY PRN NEB SHORTNESS OF BREATH; Start 08/28/18 at 16:30 Lorazepam (Ativan) 1 mg BID PRN PO ANXIETY; Start 08/28/18 at 16:30 Metoprolol Succinate (Toprol Xl) 12.5 mg DAILY PO ; Start 08/29/18 at 09:00 Pantoprazole (Protonix Tab) 40 mg AC BREAKFAST PO ; Start 08/29/18 at 07:00 Ranolazine (Ranexa) 1,000 mg Q12 PO ; Start 08/28/18 at 21:00 Rivaroxaban (Xarelto) 20 mg WITH DINNER PO ; Start 08/28/18 at 18:00 Tamsulosin HCl (Flomax) 0.4 mg BID PO ; Start 08/28/18 at 21:00 Tiotropium Brogan (Spiriva) 1 inh DAILY INH ; Start 08/29/18 at 09:00 Zolpidem Tartrate (Ambien) 10 mg QHS PRN PO INSOMNIA; Start 08/28/18 at 16:30 Amoxicillin (Amoxicillin) 500 mg BID PO ; Start 08/28/18 at 21:00 Sodium Chloride 1,000 ml @ 75 mls/hr [id number] IV ; Start 08/28/18 at 16:24 IV Flush (NS 3 ml) 3 ml PER PROTOCOL IV ; Start 08/28/18 at 16:30 Ondansetron HCl (Zofran Inj) 4 mg Q6H PRN IV NAUSEA/VOMITING; Start 08/28/18 at 16:30 Acetaminophen (Tylenol Tab) 650 mg Q6H PRN PO .PAIN 1-3 OR TEMP; Start 08/28/18 at 16:30 Acetaminophen/ Hydrocodone Bitart ([place] (5/325)) 1 tab Q6H PRN PO .PAIN 4-6; Start 08/28/18 at 16:30 Morphine Sulfate (morphine) 2 mg Q4H PRN IV .PAIN 7-10; Start 08/28/18 at 16:30 Magnesium Hydroxide (Milk Of Mag) 30 ml DAILY PRN PO .CONSTIPATION; Start 08/28/18 at 16:30 Sodium Chloride ([place]) 2 spray BID PRN NASAL congestion; Start 08/28/18 at 16:30 Nitroglycerin (Nitroglycerin (Sl Tab) 0.4 Mg) 1 tab Q5M PRN SL ANGINA; Start 08/28/18 at 16:30 Senna/Docusate Sodium (Senokot-S) 1 tab BID PO ; Start 08/28/18 at 21:00 RHONDA TERRY MD Aug 28, 2018 17:26
[2018-08-28] MEDS ORDERED: RIVAROXABAN 20 MG TABLET PO SCH (17:55)
[2018-08-28 18:21] VITALS: BP 164/97; PULSE 74; RESP 20
[2018-08-28] MEDS: SOD CHLORIDE 0.9% 1,000 ML IV SCH (18:30)
[2018-08-28 20:00] VITALS: BP 138/91; PULSE 65; RESP 18
[2018-08-28] MEDS ORDERED: RANITIDINE 150 MG TAB PO SCH (21:00)
[2018-08-28] MEDS ORDERED: ATORVASTATIN 40 MG TAB PO SCH (21:00)
[2018-08-28] MEDS: RANOLAZINE (SR) 500 MG TAB PO SCH (21:02)
[2018-08-28] MEDS: AMOXICILLIN 500 MG CAP PO SCH (21:02)
[2018-08-28] MEDS: SENNA/DOCUSATE NA (8.6MG/50MG) TAB PO SCH (21:03)
[2018-08-28] MEDS: TAMSULOSIN (SR) 0.4 MG CAP PO SCH (21:03)
[2018-08-28] MEDS: BACLOFEN 10 MG TAB PO SCH (21:03)
[2018-08-28] MEDS: FLUTICASONE 0.05% 16 GM NAS SPRAY NASAL SCH (21:03)
[2018-08-28] MEDS: HYDROCODONE/APAP (10/325) TAB PO SCH (21:03)
[2018-08-29] VITALS: BP 120/78; PULSE 75; RESP 17
[2018-08-29 04:00] VITALS: BP 137/88; PULSE 69; RESP 17
[2018-08-29] MEDS ORDERED: PANTOPRAZOLE (EC) 40 MG TAB PO SCH (07:00)
[2018-08-29 07:07] VITALS: BP 147/87; PULSE 59; RESP 16
--- NOTE | 2018-08-29 08:16 | CONS ---
Consult Date/Type/Reason Admit Date/Time Aug 28, 2018 at 15:53 Initial Consult Date 08/28/18 Requesting Provider: HARPREET LOOMIS MD Date/Time of Note DATE: 08/29/18 TIME: 08:14 Subjective Cardiology follow-up progress note Subjective: Case discussed with the staff telemetry was reviewed patient has remained in sinus rhythm His chest pain is much better now Denies any active wheezing to me Objective: General: Thin gentleman in no acute distress HEENT: NC/AT. pupils are equal. round. NECK: NO JVD. no stridor. CV: RRR. systolic murmur; no gallop or rubs. PULM: no wheezing or rhonchi. GI: SOFT, NT, ND, no rebound or guarding Extremity: trace B/L LE edema. no clubbing. neuro: awake and alert, OX3. Psych: calm and pleasant rectal: deferred : normal EKG was reviewed which showed normal sinus rhythm with no evidence of ischemia CT pulmonary angiogram done in the emergency room shows: 1. Advanced bullous emphysematous changes of the lungs is stable. 2. Moderate retained feces throughout the transverse colon consistent with constipation. 3. Left shoulder arthroplasty in place. 4. No evidence of pulmonary emboli, aortic aneurysm or dissection. Objective Vitals Vital Signs Date Temp Pulse Resp B/P (MAP) Pulse Ox O2 O2 Flow FiO2 Time Delivery Rate 08/29/18 97.8 59 16 147/87 98 Room Air 07:07 (107) 08/28/18 2 13:01 Intake and Output 08/28/18 08/28/18 08/29/18 1515:00 23:00 07:00 IntakeIntake Total 350 ml OutputOutput Total 200 ml 600 ml BalanceBalance -200 ml -250 ml Results/Medications Result Diagram: 08/29/18 0603 08/29/18 0603 Results 24 hrs Laboratory Tests Test 08/28/18 12:50 08/28/18 17:57 08/29/18 00:32 08/29/18 06:03 White Blood Count 5.0 # 5.1 Red Blood Count 4.64 #L 4.30 L Hemoglobin 11.8 L 10.9 L Hematocrit 36.0 #L 33.1 L Mean Corpuscular 77.6 L 77.0 L Volume Mean Corpuscular 25.4 L 25.3 L Hemoglobin Mean Corpuscular 32.8 32.9 Hemoglobin Concent Red Cell Distribution 15.9 H 16.0 H Width Platelet Count 197 # 181 Mean Platelet Volume 9.6 9.4 Immature Granulocytes 1.000 H 0.800 H % Neutrophils % 61.6 60.1 Lymphocytes % 24.4 25.0 Monocytes % 11.2 H 11.5 H Eosinophils % 1.0 2.0 Basophils % 0.8 0.6 Nucleated Red Blood 0.0 0.0 Cells % Immature Granulocytes 0.050 H 0.040 H # Neutrophils # 3.1 3.0 Lymphocytes # 1.2 1.3 Monocytes # 0.6 0.6 Eosinophils # 0.1 0.1 Basophils # 0.0 0.0 Nucleated Red Blood 0.0 0.0 Cells # Sodium Level 140 139 Potassium Level 4.7 4.1 Chloride Level 107 110 Carbon Dioxide Level 28 24 Anion Gap 5 5 Blood Urea Nitrogen 14 14 Creatinine 1.56 H 1.37 H Est Glomerular Filtrat Rate mL/min Glucose Level 91 100 Calcium Level 9.0 8.6 Troponin I < 0.012 < 0.012 < 0.012 < 0.012 B-Type Natriuretic 93 105 Peptide Creatine Kinase 98 86 81 Creatine Kinase Index 1.0 1.2 1.3 Creatinine Kinase MB 0.97 0.99 1.04 (Mass) Iron Level 32 L Total Iron Binding 336 Capacity Percent Iron 10 L Saturation Total Bilirubin 0.4 Direct Bilirubin 0.00 Indirect Bilirubin 0.4 Aspartate Amino 20 Transf (AST/SGOT) Alanine 29 Aminotransferase (ALT/ SGPT) Alkaline Phosphatase 70 Total Protein 5.9 L Albumin 3.2 L Globulin 2.70 Albumin/Globulin Ratio 1.18 Triglycerides Level 58 Cholesterol Level 160 LDL Cholesterol, 72 Calculated HDL Cholesterol 76 H Cholesterol/HDL Ratio 2.1 Thyroid Stimulating 1.970 Hormone (TSH) Free Thyroxine 1.35 Home Meds Reported Medications Baclofen* (Baclofen*) 20 Mg Tablet, 20 MG PO BID, TAB 08/28/18 Ipratropium-Albuterol (Ipratropium-Albuterol) 0.5-3 Mg/3 Ml Ampul.neb, 3 ML INHALATION DAILY, #30 VIAL 08/28/18 Dexlansoprazole (Dexilant) 60 Mg Floyd., 60 MG PO DAILY, #30 CAP 08/28/18 Ranitidine Hcl* (Ranitidine Hcl*) 300 Mg Tablet, 300 MG PO HS, #30 TAB 08/28/18 Ondansetron Hcl* (Zofran*) 4 Mg Tab, 4 MG PO Q6H PRN for NAUSEA AND OR VOMITING, TAB 08/28/18 Fluticasone-Vilanterol (Breo Ellipta Inhaler) 100-25 Mcg/Actuation Aer.pow.ba, 1 PUFF INHALATION DAILY, #1 INHALER 08/28/18 Finasteride* (Finasteride*) 5 Mg Tablet, 5 MG PO DAILY, TAB 08/28/18 Tamsulosin Hcl* (Flomax*) 0.4 Mg Cap.er.24h, 0.4 MG PO BID, CAP 08/28/18 Fluticasone Propionate* (Fluticasone Propionate* Nasal) 50 Mcg/[place] - 16 Gm [place].susp, 1 SPRAY NASAL DAILY, #1 BOTTLE TO EACH NOSTRIL 08/28/18 Tiotropium [place]* (Spiriva*) 18 Mcg Cap.w.dev, 1 CAP INHALATION DAILY, #30 CAP 08/28/18 Pantoprazole* (Pantoprazole*) 40 Mg Tablet.dr, 40 MG PO AC BREAKFAST, TAB 08/28/18 Gabapentin* (Gabapentin*) 100 Mg Capsule, 100 MG PO DAILY, #90 CAP 08/28/18 Rivaroxaban* (Xarelto*) 20 Mg Tablet, 20 MG PO WITH DINNER, TAB 08/28/18 Albuterol Sulfate* (Ventolin HFA*) 18 Gm Hfa.aer.ad, 2 PUFF INHALATION Q4H, #1 INHALER 08/28/18 Atorvastatin* (Atorvastatin*) 40 Mg Tablet, 40 MG PO QHS, #30 TAB 08/28/18 Metoprolol Succinate* (Toprol XL*) 25 Mg Tab.sr.24h, 12.5 MG PO DAILY, #30 TAB 08/28/18 Hydrocodone/Acetaminophen ([place] 10-325 Tablet) 1 Each Tablet, 1 EACH PO BID, TAB 08/28/18 Zolpidem Tartrate* (Zolpidem Tartrate*) 10 Mg Tablet, 10 MG PO QHS PRN for INSOMNIA, #30 TAB 08/28/18 Lorazepam* (Lorazepam*) 1 Mg Tablet, 1 MG PO BID PRN for ANXIETY, #30 TAB 08/28/18 Ranolazine* (Ranexa*) 1,000 Mg Tab.sr.12h, 1000 MG PO Q12, TAB 08/28/18 Cholecalciferol* (Vitamin D*) 400 Unit Tablet, 400 UNIT PO DAILY, TAB 08/28/18 Discontinued Reported Medications Docusate Sodium* (Docusate Sodium*) 100 Mg Capsule, 1 CAP PO DAILY, #30 CAP 03/30/17 Gabapentin* (Gabapentin*) 100 Mg Capsule, 100 MG PO QHS, #90 CAP 03/30/17 Metoclopramide Hcl* (Metoclopramide Hcl*) 5 Mg Tablet, 5 MG PO Q6H PRN for NAUSEA AND OR VOMITING, TAB 03/30/17 Zolpidem Tartrate* (Zolpidem Tartrate*) 10 Mg Tablet, 10 MG PO QHS PRN for INSOMNIA, #30 TAB 03/30/17 Ben [place]olt-3 Fatty Acids/Fish Oil (Fish Oil 1,000 mg Capsule) 1 Each Capsule, 2 EACH PO DAILY, CAP 03/30/17 Albuterol Sulfate* (Albuterol Sulfate* Neb) 0.083%-3 Ml Neb, 2.5 MG NEB QID PRN for WHEEZING AND SOB, #30 VIAL 03/30/17 Tiotropium [place]* (Spiriva*) 18 Mcg Cap.w.dev, 1 CAP INHALATION DAILY, #30 CAP 03/30/17 Albuterol Sulfate (Proair Respiclick) 90 Mcg Aer.pow.ba, 2 PUFFS INHALATION NEEDED, BOTTLE 03/30/17 Budesonide-Formoterol Fumarate* (Symbicort*) 160-4.5 Hfa.aer.ad, 2 PUFF INHALATION BID, #1 EACH 03/30/17 Fluticasone Propionate* (Fluticasone Propionate* Nasal) 50 Mcg/[place] - 16 Gm [place].susp, 2 SPRAY NASAL BID, #1 BOTTLE TO EACH NOSTRIL 03/30/17 Dexlansoprazole (Dexilant) 60 Mg Cap.drFaridamp, 60 MG PO DAILY, #30 CAP 03/30/17 Baclofen* (Baclofen*) 20 Mg Tablet, 20 MG PO BID, TAB 03/30/17 Hydrocodone/Acetaminophen ([place] 10-325 Tablet) 1 Each Tablet, 1 EACH PO NEEDED, TAB 03/30/17 Finasteride* (Finasteride*) 5 Mg Tablet, 5 MG PO DAILY, TAB TAKE 1 OR 2 TIMES A DAY 03/30/17 Tamsulosin Hcl* (Tamsulosin Hcl*) 0.4 Mg Cap.er.24h, 0.4 MG PO DAILY, CAP TAKE 1 OR 2 TIMES A DAY 03/30/17 Isosorbide Mononitrate* (Isosorbide Mononitrate*) 60 Mg Tab.er.24h, 60 MG PO DAILY, TAB 03/30/17 Atorvastatin* (Atorvastatin*) 40 Mg Tablet, 40 MG PO QHS, #30 TAB 03/30/17 Ranolazine* (Ranexa*) 1,000 Mg Tab.sr.12h, 1000 MG PO Q12, TAB 03/30/17 Discontinued Scripts Rivaroxaban* (Xarelto*) 15 Mg Tablet, 15 MG PO BID WITH MEALS for 21 Days, #42 TAB Prov:AMANDA JONES 04/07/17 Fluconazole* (Diflucan*) 100 Mg Tablet, 100 MG PO DAILY for 30 Days, #30 TAB Prov:AMANDA JONES 04/07/17 Medications Current Medications Ondansetron HCl (Zofran Inj) 4 mg ER BRIDGE PRN IV NAUSEA/VOMITING; Start 08/28/18 at 16:00; Stop 08/29/18 at 15:59 Acetaminophen (Tylenol Tab) 650 mg ER BRIDGE PRN PO .MILD PAIN 1-3 OR TEMP; Start 08/28/18 at 16:00; Stop 08/29/18 at 15:59 Atorvastatin Calcium (Lipitor) 40 mg QHS PO Last administered on 08/28/18at 21:03; Admin Dose 40 MG; Start 08/28/18 at 21:00 Baclofen (Lioresal) 20 mg BID PO Last administered on 08/28/18at 21:03; Admin Dose 20 MG; Start 08/28/18 at 21:00 Cholecalciferol (Vitamin D) 400 units DAILY PO ; Start 08/29/18 at 09:00 Finasteride (Proscar) 5 mg DAILY PO ; Start 08/29/18 at 09:00 Fluticasone Propionate (Flonase 0.05% Nasal) 1 spray BID NASAL Last administered on 08/28/18at 21:03; Admin Dose 1 SPRAY; Start 08/28/18 at 21:00 Fluticasone/ Vilanterol (Breo Ellipta 100-25 Mcg Inh) 1 inh DAILY INH ; Start 08/29/18 at 09:00 Gabapentin (Neurontin) 100 mg DAILY PO ; Start 08/29/18 at 09:00 Acetaminophen/ Hydrocodone Bitart ([place] ()) 1 tab BID PO Last administered on 08/28/18at 21:03; Admin Dose 1 TAB; Start 08/28/18 at 21:00 Albuterol/ Ipratropium (Duoneb) 3 ml Q4H RESP THERAPY PRN NEB SHORTNESS OF BREATH; Start 08/28/18 at 16:30 Lorazepam (Ativan) 1 mg BID PRN PO ANXIETY; Start 08/28/18 at 16:30 Metoprolol Succinate (Toprol Xl) 12.5 mg DAILY PO ; Start 08/29/18 at 09:00 Pantoprazole (Protonix Tab) 40 mg AC BREAKFAST PO ; Start 08/29/18 at 07:00 Ranolazine (Ranexa) 1,000 mg Q12 PO Last administered on 08/28/18 21:02; Admin Dose 1,000 MG; Start 08/28/18 at 21:00 Rivaroxaban (Xarelto) 20 mg WITH DINNER PO Last administered on 08/28/18 22:43; Admin Dose 20 MG; Start 08/28/18 at 17:55 Tamsulosin HCl (Flomax) 0.4 mg BID PO Last administered on 08/28/18at 21:03; Admin Dose 0.4 MG; Start 08/28/18 at 21:00 Tiotropium [place] (Spiriva) 1 inh DAILY INH ; Start 08/29/18 at 09:00 Zolpidem Tartrate (Ambien) 10 mg QHS PRN PO INSOMNIA Last administered on 08/28/18 22:43; Admin Dose 10 MG; Start 08/28/18 at 16:30 Amoxicillin (Amoxicillin) 500 mg BID PO Last administered on 08/28/18 21:02; Ad min Dose 500 MG; Start 08/28/18 at 21:00 Sodium Chloride 1,000 ml @ 75 mls/hr [id number] IV Last administered on 08/28/18 18:30; Admin Dose 75 MLS/HR; Start 08/28/18 at 16:24 IV Flush (NS 3 ml) 3 ml PER PROTOCOL IV ; Start 08/28/18 at 16:30 Ondansetron HCl (Zofran Inj) 4 mg Q6H PRN IV NAUSEA/VOMITING; Start 08/28/18 at 16:30 Acetaminophen (Tylenol Tab) 650 mg Q6H PRN PO .PAIN 1-3 OR TEMP; Start 08/28/18 at 16:30 Acetaminophen/ Hydrocodone Bitart ([place] (5/325)) 1 tab Q6H PRN PO .PAIN 4-6; Start 08/28/18 at 16:30 Morphine Sulfate (morphine) 2 mg Q4H PRN IV .PAIN 7-10 Last administered on 08/28/18at 18:30; Admin Dose 2 MG; Start 08/28/18 at 16:30 Magnesium Hydroxide (Milk Of Mag) 30 ml DAILY PRN PO .CONSTIPATION; Start 08/28/18 at 16:30 Sodium Chloride ([place]) 2 spray BID PRN NASAL congestion; Start 08/28/18 at 16:30 Nitroglycerin (Nitroglycerin (Sl Tab) 0.4 Mg) 1 tab Q5M PRN SL ANGINA; Start 08/28/18 at 16:30 Senna/Docusate Sodium (Senokot-S) 1 tab BID PO Last administered on 08/28/18at 21:03; Admin Dose 1 TAB; Start 08/28/18 at 21:00 Simethicone (Mylicon) 80 mg Q6H PRN PO DISTENSION/GAS/BLOATING Last administered on 08/28/18at 22:57; Admin Dose 80 MG; Start 08/28/18 at 23:00 Assessment/Plan Hospital Course (Demo Recall) 1. Chest pain appears to be nonanginal who is with a myocardial infarction. 2. History of coronary artery disease status post inferior ST elevation myocardial infarction 3. History of PCI of the right coronary artery 4. History of pulmonary embolus on appropriate therapy 5. Hypertension 6. Severe COPD 7. Dyslipidemia under good control Recommendations: Patient was ruled out for myocardial infarction with serial cardiac enzymes. Increase Toprol-XL. Continue with a statin We will do a Lexiscan stress today Thank you for his referral. We will continue to follow along with you RHONDA TERRY MD [facility] RHONDA TERRY MD Aug 29, 2018 08:16
[2018-08-29] MEDS ORDERED: REGADENOSON 0.4 MG/5 ML SYG ONE (08:29)
[2018-08-29] MEDS ORDERED: METOPROLOL (XL) 25 MG TAB PO SCH ×2 (09:00)
[2018-08-29] MEDS ORDERED: TIOTROPIUM 18 MCG CAPSULE INHA DEV INH SCH (09:00)
[2018-08-29] MEDS ORDERED: GABAPENTIN 100 MG CAP PO SCH (09:00)
[2018-08-29] MEDS ORDERED: FINASTERIDE 5 MG TAB PO SCH (09:00)
[2018-08-29] MEDS ORDERED: CHOLECALCIFEROL 400 UNITS TAB PO SCH (09:00)
[2018-08-29] MEDS ORDERED: FLUTICASONE/VILANTEROL 100-25 INH SCH (09:00)
[2018-08-29] MEDS: HYDROCODONE/APAP (10/325) TAB PO SCH (11:17)
[2018-08-29] MEDS: SOD CHLORIDE 0.9% 1,000 ML IV SCH (11:17)
[2018-08-29] MEDS: AMOXICILLIN 500 MG CAP PO SCH (11:18)
[2018-08-29] MEDS: RANOLAZINE (SR) 500 MG TAB PO SCH (11:18)
[2018-08-29] MEDS: FLUTICASONE 0.05% 16 GM NAS SPRAY NASAL SCH (11:19)
[2018-08-29] MEDS: BACLOFEN 10 MG TAB PO SCH (11:19)
[2018-08-29] MEDS: TAMSULOSIN (SR) 0.4 MG CAP PO SCH (11:19)
[2018-08-29] MEDS: SENNA/DOCUSATE NA (8.6MG/50MG) TAB PO SCH (11:19)
[2018-08-29 12:40] VITALS: BP 130/80; PULSE 77; RESP 17
--- NOTE | 2018-08-29 12:55 | PN ---
Date/Time of Note Date/Time of Note DATE: 08/29/18 TIME: 12:50 Assessment/Plan VTE Prophylaxis Risk score (from Ns)>0 risk: 5 SCD applied (from Ns): No SCD contraindicated: low risk/ambulating Pharmacological prophylaxis: NA/contraindicated Pharm contraindication: low risk/ambulating Lines/Catheters IV Catheter Type (from Nrs): Peripheral IV Assessment/Plan Assessment/Plan 1. Acute chest pain- musculoskeletal in nature - ACS ruled out with negative trops and stress test with no acute reversible changes - EKG negative for acute ST changes - Cardiology consultation appreciated - Nitro, morphine, O2 PRN 2. Acute sinusitis- improving - continue on Amoxicillin for 7 day course and encouraged to continue nasal sprays 3. Acute shortness of breath- resolved - CTA chest noted with emphysematous changes but no dissection or PE noted - Pulmonology consultation appreciated - will continue PRN nebs 4. Acute renal failure- improving - encourage PO hydration 5. h/o COPD - continue home bronchodilators - no wheezing appreciated so doubt exacerbation 6. HTN - continue home medications 7. CAD s/p PCI - continue home medications 8. h/o PE - CTA negative for PE 9. Anemia - iron deficient - will continue PO supplements after discharge 10. Disposition - Medically stable for discharge home Result Diagram: 08/29/1860208/29/18 06 Results 24hrs Laboratory Tests Test 08/28/18 17:57 08/29/18 00:32 08/29/18 06:03 Creatine Kinase 98 86 81 Creatine Kinase Index 1.0 1.2 1.3 Creatinine Kinase MB (Mass) 0.97 0.99 1.04 Troponin I < 0.012 < 0.012 < 0.012 White Blood Count 5.1 Red Blood Count 4.30 L Hemoglobin 10.9 L Hematocrit 33.1 L Mean Corpuscular Volume 77.0 L Mean Corpuscular Hemoglobin 25.3 L Mean Corpuscular Hemoglobin Concent 32.9 Red Cell Distribution Width 16.0 H Platelet Count 181 Mean Platelet Volume 9.4 Immature Granulocytes % 0.800 H Neutrophils % 60.1 Lymphocytes % 25.0 Monocytes % 11.5 H Eosinophils % 2.0 Basophils % 0.6 Nucleated Red Blood Cells % 0.0 Immature Granulocytes # 0.040 H Neutrophils # 3.0 Lymphocytes # 1.3 Monocytes # 0.6 Eosinophils # 0.1 Basophils # 0.0 Nucleated Red Blood Cells # 0.0 Sodium Level 139 Potassium Level 4.1 Chloride Level 110 Carbon Dioxide Level 24 Anion Gap 5 Blood Urea Nitrogen 14 Creatinine 1.37 H Est Glomerular Filtrat Rate mL/min Glucose Level 100 Calcium Level 8.6 Iron Level 32 L Total Iron Binding Capacity 336 Percent Iron Saturation 10 L Total Bilirubin 0.4 Direct Bilirubin 0.00 Indirect Bilirubin 0.4 Aspartate Amino Transf (AST/SGOT) 20 Alanine Aminotransferase (ALT/SGPT) 29 Alkaline Phosphatase 70 B-Type Natriuretic Peptide 105 Total Protein 5.9 L Albumin 3.2 L Globulin 2.70 Albumin/Globulin Ratio 1.18 Triglycerides Level 58 Cholesterol Level 160 LDL Cholesterol, Calculated 72 HDL Cholesterol 76 H Cholesterol/HDL Ratio 2.1 Thyroid Stimulating Hormone (TSH) 1.970 Free Thyroxine 1.35 Subjective 24 Hr Interval Summary Free Text/Dictation Patient states he's feeling better and denies any acute issues. Still with chest discomfort but most likely muscular which was discussed with him. Exam/Review of Systems Exam Vitals Vital Signs Date Temp Pulse Resp B/P (MAP) Pulse Ox O2 O2 Flow FiO2 Time Delivery Rate 08/29/18 97.8 77 17 130/80 100 Room Air 12:40 (97) 08/28/18 2 13:01 Intake and Output 08/28/18 08/28/18 08/29/18 1515:00 23:00 07:00 IntakeIntake Total 350 ml OutputOutput Total 200 ml 600 ml BalanceBalance -200 ml -250 ml Exam General: no acute distress. HEENT: tenderness maxillary and frontal sinus to palpation Chest: left lower chest wall discomfort Lungs: Diminished breath sounds, nonlabored breathing, no wheezing or rhonchi a ppreciated Heart: Normal S1-S2, Regular rhythm and rate. No murmur, S3, or S4 Abdomen: Soft , nontender, nondistended , bowel sounds are present. No guarding no rebound tenderness Skin: no rashes or lesions appreciated Results Results 24hrs Laboratory Tests Test 08/28/18 17:57 08/29/18 00:32 08/29/18 06:03 Creatine Kinase 98 86 81 Creatine Kinase Index 1.0 1.2 1.3 Creatinine Kinase MB (Mass) 0.97 0.99 1.04 Troponin I < 0.012 < 0.012 < 0.012 White Blood Count 5.1 Red Blood Count 4.30 L Hemoglobin 10.9 L Hematocrit 33.1 L Mean Corpuscular Volume 77.0 L Mean Corpuscular Hemoglobin 25.3 L Mean Corpuscular Hemoglobin Concent 32.9 Red Cell Distribution Width 16.0 H Platelet Count 181 Mean Platelet Volume 9.4 Immature Granulocytes % 0.800 H Neutrophils % 60.1 Lymphocytes % 25.0 Monocytes % 11.5 H Eosinophils % 2.0 Basophils % 0.6 Nucleated Red Blood Cells % 0.0 Immature Granulocytes # 0.040 H Neutrophils # 3.0 Lymphocytes # 1.3 Monocytes # 0.6 Eosinophils # 0.1 Basophils # 0.0 Nucleated Red Blood Cells # 0.0 Sodium Level 139 Potassium Level 4.1 Chloride Level 110 Carbon Dioxide Level 24 Anion Gap 5 Blood Urea Nitrogen 14 Creatinine 1.37 H Est Glomerular Filtrat Rate mL/min Glucose Level 100 Calcium Level 8.6 Iron Level 32 L Total Iron Binding Capacity 336 Percent Iron Saturation 10 L Total Bilirubin 0.4 Direct Bilirubin 0.00 Indirect Bilirubin 0.4 Aspartate Amino Transf (AST/SGOT) 20 Alanine Aminotransferase (ALT/SGPT) 29 Alkaline Phosphatase 70 B-Type Natriuretic Peptide 105 Total Protein 5.9 L Albumin 3.2 L Globulin 2.70 Albumin/Globulin Ratio 1.18 Triglycerides Level 58 Cholesterol Level 160 LDL Cholesterol, Calculated 72 HDL Cholesterol 76 H Cholesterol/HDL Ratio 2.1 Thyroid Stimulating Hormone (TSH) 1.970 Free Thyroxine 1.35 Medications Medication Current Medications Atorvastatin Calcium (Lipitor) 40 mg QHS PO Last administered on 08/28/18 21:03; Admin Dose 40 MG; Start 08/28/18 at 21:00 Baclofen (Lioresal) 20 mg BID PO Last administered on 08/29/18 11:19; Admin Dose 20 MG; Start 08/28/18 at 21:00 Cholecalciferol (Vitamin D) 400 units DAILY PO Last administered on 08/29/18 11:18; Admin Dose 400 UNITS; Start 08/29/18 at 09:00 Finasteride (Proscar) 5 mg DAILY PO Last administered on 08/29/18 11:17; Admin Dose 5 MG; Start 08/29/18 at 09:00 Fluticasone Propionate (Flonase 0.05% Nasal) 1 spray BID NASAL Last administered on 08/29/18 11:19; Admin Dose 1 SPRAY; Start 08/28/18 at 21:00 Fluticasone/ Vilanterol (Breo Ellipta 100-25 Mcg Inh) 1 inh DAILY INH Last administered on 08/29/18 11:21; Admin Dose 1 INH; Start 08/29/18 at 09:00 Gabapentin (Neurontin) 100 mg DAILY PO Last administered on 08/29/18 11:19; Admin Dose 100 MG; Start 08/29/18 at 09:00 Acetaminophen/ Hydrocodone Bitart ([place] (10/325)) 1 tab BID PO Last administered on 08/29/18 11:17; Admin Dose 1 TAB; Start 08/28/18 at 21:00 Albuterol/ Ipratropium (Duoneb) 3 ml Q4H RESP THERAPY PRN NEB SHORTNESS OF BREATH; Start 08/28/18 at 16:30 Lorazepam (Ativan) 1 mg BID PRN PO ANXIETY; Start 08/28/18 at 16:30 Pantoprazole (Protonix Tab) 40 mg AC BREAKFAST PO Last administered on 08/29/18 11:36; Admin Dose 40 MG; Start 08/29/18 at 07:00 Ranolazine (Ranexa) 1,000 mg Q12 PO Last administered on 08/29/18 11:18; Admin Dose 1,000 MG; Start 08/28/18 at 21:00 Rivaroxaban (Xarelto) 20 mg WITH DINNER PO Last administered on 08/28/18 22:43; Admin Dose 20 MG; Start 08/28/18 at 17:55 Tamsulosin HCl (Flomax) 0.4 mg BID PO Last administered on 08/29/18 11:19; Admin Dose 0.4 MG; Start 08/28/18 at 21:00 Tiotropium [place] (Spiriva) 1 inh DAILY INH Last administered on 08/29/18 11:20; Admin Dose 1 INH; Start 08/29/18 at 09:00 Zolpidem Tartrate (Ambien) 10 mg QHS PRN PO INSOMNIA Last administered on 08/28/18 22:43; Admin Dose 10 MG; Start 08/28/18 at 16:30 Amoxicillin (Amoxicillin) 500 mg BID PO Last administered on 08/29/18 11:18; Admin Dose 500 MG; Start 08/28/18 at 21:00 Sodium Chloride 1,000 ml @ 75 mls/hr [id number] IV Last administered on 08/29/18at 11:17; Admin Dose 75 MLS/HR; Start 08/28/18 at 16:24 IV Flush (NS 3 ml) 3 ml PER PROTOCOL IV ; Start 08/28/18 at 16:30 Ondansetron HCl (Zofran Inj) 4 mg Q6H PRN IV NAUSEA/VOMITING; Start 08/28/18 at 16:30 Acetaminophen (Tylenol Tab) 650 mg Q6H PRN PO .PAIN 1-3 OR TEMP; Start 08/28/18 at 16:30 Acetaminophen/ Hydrocodone Bitart ([place] (5/325)) 1 tab Q6H PRN PO .PAIN 4-6; Start 08/28/18 at 16:30 Morphine Sulfate (morphine) 2 mg Q4H PRN IV .PAIN 7-10 Last administered on 08/28/18at 18:30; Admin Dose 2 MG; Start 08/28/18 at 16:30 Magnesium Hydroxide (Milk Of Mag) 30 ml DAILY PRN PO .CONSTIPATION; Start 08/28/18 at 16:30 Sodium Chloride ([place]) 2 spray BID PRN NASAL congestion; Start 08/28/18 at 16:30 Nitroglycerin (Nitroglycerin (Sl Tab) 0.4 Mg) 1 tab Q5M PRN SL ANGINA; Start 08/28/18 at 16:30 Senna/Docusate Sodium (Senokot-S) 1 tab BID PO Last administered on 08/29/18at 11:19; Admin Dose 1 TAB; Start 08/28/18 at 21:00 Simethicone (Mylicon) 80 mg Q6H PRN PO DISTENSION/GAS/BLOATING Last administered on 08/28/18 22:57; Admin Dose 80 MG; Start 08/28/18 at 23:00 Metoprolol Succinate (Toprol Xl) 25 mg DAILY PO Last administered on 08/29/18at 11:23; Admin Dose 25 MG; Start 08/29/18 at 09:00 HARPREET LOOMIS MD Aug 29, 2018 12:55
[2018-08-29] MEDS ORDERED: AMOX500C2 PO (12:58)
[2018-08-29] MEDS ORDERED: TAMS-14 PO (12:58)
[2018-08-29] MEDS ORDERED: CHOL100062 PO (12:58)
[2018-08-29] MEDS ORDERED: METO-335 PO (12:58)
[2018-08-29] MEDS ORDERED: FER325 PO (12:59)
--- NOTE | 2018-08-29 13:02 | PDOCDIS ---
Discharge Instructions DIAGNOSIS Discharge Diagnosis 1. Acute chest pain, musculoskeletal 2. Acute sinusitis 3. Acute dehydration 4. h/o COPD 5. HTN 6. CAD s/p PCI 7. h/o PE 8. Anemia, iron deficiency CONDITION [id number] Patient Condition: [id number] Stable HOME CARE INSTRUCTIONS: [id number] Diet Instructions: [id number] Low Fat /Cholesterol ACTIVITY: [id number] Activity Restrictions: [id number] No Restrictions FOLLOW UP/APPOINTMENTS Follow-up Plan 1. Follow up with your primary care physician in 1-2 weeks 2. Follow up with Dr. Sandoval. Please call his office to make an appointment 3. Follow up with Dr. Hill in 1-2 weeks. 4. Continue Amoxicillin twice a day with the next dose tonight, 08/29. Continue using nasal sprays as tolerated for congestion 5. Take iron daily given low iron levels found during hospitalization 6. Take Vit D 2000 mg daily to help maintain adequate Vit D levels 7. Your metoprolol dose was increased to [address] Hill 8. Please continue all other medications as prescribed 9. If experiencing any concerning symptoms, please go to your closest emergency department for evaluation HARPREET LOOMIS MD Aug 29, 2018 13:02
--- NOTE | 2018-08-29 14:47 | CONS ---
DATE OF ADMISSION: 08/28/2018 DATE OF CONSULTATION: REASON FOR CONSULTATION: Shortness of breath. Thank you, Dr. Mcneil, for this consultation. HISTORY OF PRESENT ILLNESS: This is a 73-year-old gentleman well known to me, followed in the office so for several years with underlying history of COPD, and pulmonary infiltrates presented yesterday with left-sided pleuritic chest pain of several day history, but no fever, chills, chest pain or palp itations came in for further evaluation, given prior history of coronary artery disease. He had a CT angiogram which showed emphysematous lung changes, but no infiltrates or effusions and no pulmonary embolus. In addition, the patient had a nuclear medicine stress test this morning which showed no re versible ischemia, diminished LV wall contractility with an ejection fraction of 46%. EKGs have been unremarkable. Troponin is negative. The patient states he still has occasional left-sided pleuriti c chest pain, but has improved. PAST MEDICAL HISTORY: 1. Coronary artery disease. 2. Moderate emphysema. 3. History of bilateral pulmonary infiltrates. MEDICATIONS: Per chart. ALLERGIES: NONE. SOCIAL HISTORY: He is a nonsmoker, no alcohol, no history of drug use. FAMILY HISTORY: Noncontributory. SYSTEMS REVIEW: A 12-point review of systems was negative other than that mentioned above. PHYSICAL EXAMINATION: GENERAL: Well-nourished, well-developed gentleman, talking in full and complete sentences. VITAL SIGNS: Currently afebrile, pulse is 60, blood pressure 147/87, O2 saturation 96% on room air. NECK: Supple. No JVD or lymphadenopathy. CARDIAC: S1, S2, no added sounds or murmurs. CHEST: Diminished air entry bilaterally. ABDOMEN: Soft, nontender. No guarding or rebound. EXTREMITIES: No cyanosis, clubbing, edema. NEUROLOGIC: Grossly intact. No focal deficits. LABORATORIES: White count 5.1, hemoglobin 10.9, platelets 181. BUN 14, creatinine 1.37 with a low i ivania binding capacity. IMPRESSION AND PLAN: Likely left-sided pleuritic chest pain. No evidence of coronary ischemia or pa renchymal or thromboembolic abnormalities. The patient can likely be discharged home today. Would f inish treatment for his sinus infection and recommend iron replacement, outpatient colonoscopy and GI followup. Dictated By: RA CONNOLLY/BREANNA Conf#: [id number] DID#: [id number] CC: HARPREET MCNEIL MD;*End*
--- NOTE | 2018-08-29 17:21 | DS ---
Date/Time of Note Date/Time of Note DATE: 08/29/18 TIME: 17:19 Discharge Summary Admission/Discharge Info Admit Date/Time Aug 28, 2018 at 15:53 Discharge Date/Time Aug 29, 2018 at 16:00 Discharge Diagnosis 1. Acute chest pain, musculoskeletal 2. Acute sinusitis 3. Acute dehydration 4. h/o COPD 5. HTN 6. CAD s/p PCI 7. h/o PE 8. Anemia, iron deficiency Patient Condition: Stable Consults Cardiology- Dr. Hill Pulmonology- Dr. Sandoval Hx of Present Illness 73 yo M with PMH HTN, CAD s/p PCI, HLD, PE on Xarelto, PVD, COPD presented to ED with worsening left sided chest discomfort radiating to his back. patient states the pain has been constant over the past 4-5 days. Worse with movement and activity, better after nitro and rest. Patient does admit to associate shortness of breath, nausea, and dizziness. Patient admits to constipation and some burning with urination. He denies any loss of consciousness or vomiting. Patient admits to fevers up to 103 with shortness of breath and general malaise about 1.5 months ago. He called Dr. Wallis office who prescribed a Zpack and Medrol dose pack with improvement in respiratory function. He admits to nasal c ongestion, facial pressure, and post nasal drip as well. Patient states he never really recovered and about 2 weeks ago was experiencing difficulty ambulating with worsening dyspnea on exertion. He was evaluated in the ED and CTA was performed which was negative for PE, dissection, or infectious cause. Patient was noted with negative initial troponin, EKG negative for acute ST changes, and no signs of CHF. Dr. Sandoval requested admission for cardiac and pulmonary evaluation. Hospital Course Patient was admitted to telemetry to evaluate chest pain. Cardiology was consulted and stress test was performed with no findings of acute reversible ischemic changes. Patient also was noted with no EKG changes and negative seri al troponins. Patient was seen by Pulmonology and CTA was performed which ruled out any pulmonary embolisms or nodules. He was started on treatment for acute sinusitis with improvement in his symptoms. Patients presenting symptoms improved and he was cleared for discharge from Pulmonology and Cardiology standpoint. Patient was discharged home in good condition. Home Meds Active Scripts Ferrous Sulfate* (Ferrous Sulfate*) 325 Mg Tabec, 325 MG PO DAILY for 30 Days, #30 TAB 3 Refills Prov:HARPREET LOOMIS MD 08/29/18 Amoxicillin* (Amoxicillin*) 500 Mg Cap, 500 MG PO BID for 6 Days, #12 CAP next dose tonight, 08/29 Prov:HARPREET LOOMIS MD 08/29/18 Tamsulosin Hcl* (Flomax*) 0.4 Mg Cap.er.24h, 0.4 MG PO BID for 30 Days, #60 CAP Prov:HARPREET LOOMIS MD 08/29/18 Metoprolol Succinate* (Toprol XL*) 25 Mg Tab.sr.24h, 25 MG PO DAILY for 30 Days, #30 TAB Prov:HARPREET LOOMIS MD 08/29/18 Cholecalciferol* (Vitamin D3*) 1,000 Unit Tablet, 2000 UNIT PO DAILY for 30 Days, #60 TAB Prov:HARPREET LOOMIS MD 08/29/18 Reported Medications Baclofen* (Baclofen*) 20 Mg Tablet, 20 MG PO BID, TAB 08/28/18 Ipratropium-Albuterol (Ipratropium-Albuterol) 0.5-3 Mg/3 Ml Ampul.neb, 3 ML INHALATION DAILY, #30 VIAL 08/28/18 Ranitidine Hcl* (Ranitidine Hcl*) 300 Mg Tablet, 300 MG PO HS, #30 TAB 08/28/18 Ondansetron Hcl* (Zofran*) 4 Mg Tab, 4 MG PO Q6H PRN for NAUSEA AND OR VOMITING, TAB 08/28/18 Fluticasone-Vilanterol (Breo Ellipta Inhaler) 100-25 Mcg/Actuation Aer.pow.ba, 1 PUFF INHALATION DAILY, #1 INHALER 08/28/18 Finasteride* (Finasteride*) 5 Mg Tablet, 5 MG PO DAILY, TAB 08/28/18 Fluticasone Propionate* (Fluticasone Propionate* Nasal) 50 Mcg/[place] - 16 Gm [place].susp, 1 SPRAY NASAL DAILY, #1 BOTTLE TO EACH NOSTRIL 08/28/18 Tiotropium [place]* (Spiriva*) 18 Mcg Cap.w.dev, 1 CAP INHALATION DAILY, #30 CAP 08/28/18 Pantoprazole* (Pantoprazole*) 40 Mg Tablet.dr, 40 MG PO AC BREAKFAST, TAB 08/28/18 Gabapentin* (Gabapentin*) 100 Mg Capsule, 100 MG PO DAILY, #90 CAP 08/28/18 Rivaroxaban* (Xarelto*) 20 Mg Tablet, 20 MG PO WITH DINNER, TAB 08/28/18 Albuterol Sulfate* (Ventolin HFA*) 18 Gm Hfa.aer.ad, 2 PUFF INHALATION Q4H, #1 INHALER 08/28/18 Atorvastatin* (Atorvastatin*) 40 Mg Tablet, 40 MG PO QHS, #30 TAB 08/28/18 Hydrocodone/Acetaminophen ([place] 10-325 Tablet) 1 Each Tablet, 1 EACH PO BID, TAB 08/28/18 Zolpidem Tartrate* (Zolpidem Tartrate*) 10 Mg Tablet, 10 MG PO QHS PRN for INSOMNIA, #30 TAB 08/28/18 Lorazepam* (Lorazepam*) 1 Mg Tablet, 1 MG PO BID PRN for ANXIETY, #30 TAB 08/28/18 Ranolazine* (Ranexa*) 1,000 Mg Tab.sr.12h, 1000 MG PO Q12, TAB 08/28/18 Discontinued Reported Medications Dexlansoprazole (Dexilant) 60 Mg Cap., 60 MG PO DAILY, #30 CAP 08/28/18 Cholecalciferol* (Vitamin D*) 400 Unit Tablet, 400 UNIT PO DAILY, TAB 08/28/18 Docusate Sodium* (Docusate Sodium*) 100 Mg Capsule, 1 CAP PO DAILY, #30 CAP 03/30/17 Gabapentin* (Gabapentin*) 100 Mg Capsule, 100 MG PO QHS, #90 CAP 03/30/17 Metoclopramide Hcl* (Metoclopramide Hcl*) 5 Mg Tablet, 5 MG PO Q6H PRN for NAUSEA AND OR VOMITING, TAB 03/30/17 Zolpidem Tartrate* (Zolpidem Tartrate*) 10 Mg Tablet, 10 MG PO QHS PRN for INSOMNIA, #30 TAB 03/30/17 [place]-3 Fatty Acids/Fish Oil (Fish Oil 1,000 mg Capsule) 1 Each Capsule, 2 EACH PO DAILY, CAP 03/30/17 Albuterol Sulfate* (Albuterol Sulfate* Neb) 0.083%-3 Ml Neb, 2.5 MG NEB QID PRN for WHEEZING AND SOB, #30 VIAL 03/30/17 Tiotropium [place]* (Spiriva*) 18 Mcg Cap.w.dev, 1 CAP INHALATION DAILY, #30 CAP 03/30/17 Albuterol Sulfate (Proair Respiclick) 90 Mcg Aer.pow.ba, 2 PUFFS INHALATION NEEDED, BOTTLE 03/30/17 Budesonide-Formoterol Fumarate* (Symbicort*) 160-4.5 Hfa.aer.ad, 2 PUFF INHALATION BID, #1 EACH 03/30/17 Fluticasone Propionate* (Fluticasone Propionate* Nasal) 50 Mcg/[place] - 16 Gm [place].susp, 2 SPRAY NASAL BID, #1 BOTTLE TO EACH NOSTRIL 03/30/17 Dexlansoprazole (Dexilant) 60 Mg , 60 MG PO DAILY, #30 CAP 03/30/17 Baclofen* (Baclofen*) 20 Mg Tablet, 20 MG PO BID, TAB 03/30/17 Hydrocodone/Acetaminophen ([place] 10-325 Tablet) 1 Each Tablet, 1 EACH PO NEEDED, TAB 03/30/17 Finasteride* (Finasteride*) 5 Mg Tablet, 5 MG PO DAILY, TAB TAKE 1 OR 2 TIMES A DAY 03/30/17 Tamsulosin Hcl* (Tamsulosin Hcl*) 0.4 Mg Cap.er.24h, 0.4 MG PO DAILY, CAP TAKE 1 OR 2 TIMES A DAY 03/30/17 Isosorbide Mononitrate* (Isosorbide Mononitrate*) 60 Mg Tab.er.24h, 60 MG PO DAILY, TAB 03/30/17 Atorvastatin* (Atorvastatin*) 40 Mg Tablet, 40 MG PO QHS, #30 TAB 03/30/17 Ranolazine* (Ranexa*) 1,000 Mg Tab.sr.12h, 1000 MG PO Q12, TAB 03/30/17 Discontinued Scripts Rivaroxaban* (Xarelto*) 15 Mg Tablet, 15 MG PO BID WITH MEALS for 21 Days, #42 TAB Prov:AMANDA JONES 04/07/17 Fluconazole* (Diflucan*) 100 Mg Tablet, 100 MG PO DAILY for 30 Days, #30 TAB Prov:AMANDA JONES 04/07/17 Follow-up Plan 1. Follow up with your primary care physician in 1-2 weeks 2. Follow up with Dr. Sandoval. Please call his office to make an appointment 3. Follow up with Dr. Hill in 1-2 weeks. 4. Continue Amoxicillin twice a day with the next dose tonight, 08/29. Continue using nasal sprays as tolerated for congestion 5. Take iron daily given low iron levels found during hospitalization 6. Take Vit D 2000 mg daily to help maintain adequate Vit D levels 7. Your metoprolol dose was increased to [address] Hill 8. Please continue all other medications as prescribed 9. If experiencing any concerning symptoms, please go to your closest emergency department for evaluation Primary Care Provider Gama Coronel MD Time spent on discharge: > 30 minutes Pending Labs Laboratory Tests Test 08/28/18 17:57 08/29/18 00:32 08/29/18 06:03 Creatine Kinase 98 IU/L (23-200) 86 IU/L (23-200) 81 IU/L (23-200) Creatine Kinase 1.0 1.2 1.3 Index Creatinine Kinase 0.97 0.99 1.04 MB (Mass) ng/ml (0.0-2.4) ng/ml (0.0-2.4) ng/ml (0.0-2.4) Troponin I < 0.012 < 0.012 < 0.012 ng/ml (0.000-0.120) ng/ml (0.000-0.120 ng/ml (0.000-0.120 ) ) White Blood Count 5.1 10^3/ul (4.8-10.8) Red Blood Count 4.30 10^6/ul (4.70-6.10 ) Hemoglobin 10.9 g/dl (14.0-18.0) Hematocrit 33.1 % (42.0-52.0) Mean Corpuscular 77.0 Volume fl (82.0-101.0) Mean Corpuscular 25.3 Hemoglobin pg (29.0-33.0) Mean Corpuscular 32.9 Hemoglobin Concent g/dl (32.0-37.0) Red Cell 16.0 % (11.5-14.5) Distribution Width Platelet Count 181 10^3/UL (140-415) Mean Platelet 9.4 fl (7.4-10.4) Volume Immature 0.800 Granulocytes % % (0.001-0.429) Neutrophils % 60.1 % (39.0-77.0) Lymphocytes % 25.0 % (15.0-51.0) Monocytes % 11.5 % (0.0-11.0) Eosinophils % 2.0 % (0.0-7.0) Basophils % 0.6 % (0.0-2.0) Nucleated Red Blood 0.0 Cells % /100WBC (0.0-0.0) Immature 0.040 Granulocytes # 10^3/ul (0.0-0.031 ) Neutrophils # 3.0 10^3/ul (1.6-7.5) Lymphocytes # 1.3 10^3/ul (0.8-2.9) Monocytes # 0.6 10^3/ul (0.3-0.9) Eosinophils # 0.1 10^3/ul (0.0-0.5) Basophils # 0.0 10^3/ul (0.0-0.1) Nucleated Red Blood 0.0 Cells # 10^3/ul (0.0-0.0) Sodium Level 139 mmol/L (135-144) Potassium Level 4.1 mmol/L (3.5-5.1) Chloride Level 110 mmol/L (97-110) Carbon Dioxide 24 mmol/L (21-31) Level Anion Gap 5 (5-13) Blood Urea 14 mg/dl (7-20) Nitrogen Creatinine 1.37 mg/dl (0.61-1.24) Est Glomerular mL/min (>60) Filtrat Rate mL/min Glucose Level 100 mg/dl (70-220) Calcium Level 8.6 mg/dl (8.4-10.2) Iron Level 32 ug/dl (35-150) Total Iron Binding 336 Capacity ug/dl (241-421) Percent Iron 10 % SAT (22-52) Saturation Total Bilirubin 0.4 mg/dl (0.2-1.3) Direct Bilirubin 0.00 mg/dl (0.00-0.20) Indirect Bilirubin 0.4 mg/dl (0-1.1) Aspartate Amino 20 IU/L (15-46) Transf (AST/SGOT) Alanine 29 IU/L (13-69) Aminotransferase (A LT/SGPT) Alkaline 70 IU/L (42-121) Phosphatase B-Type Natriuretic 105 PG/ML (0-125) Peptide Total Protein 5.9 g/dl (6.1-8.1) Albumin 3.2 g/dl (3.3-4.9) Globulin 2.70 g/dl (1.3-3.2) Albumin/Globulin 1.18 Ratio Triglycerides 58 mg/dl (0-149) Level Cholesterol Level 160 mg/dl (100-200) LDL Cholesterol, 72 mg/dl Calculated HDL Cholesterol 76 mg/dl (31-75) Cholesterol/HDL 2.1 RATIO Ratio Thyroid Stimulating 1.970 Hormone (TSH) MIU/L (0.465-4.680 ) Free Thyroxine 1.35 ng/dl (0.78-2.44) HARPREET LOOMIS MD Aug 29, 2018 17:21
== END 2018-08-29 16:00 | disposition home or self-care (01) ==
LOC: E/R 11:22 → INTOOBSV 15:53 → TEL 15:53 → EDBEDREQ 16:39 → TEL 20:19
PROVIDERS: ADMIT Internal Medicine; ATTEND Internal Medicine
DX: R07.89 Other chest pain (principal); J01.90 Acute sinusitis, unspecified; E86.0 Dehydration; J44.9 Chronic obstructive pulmonary disease, unspecified; I10 Essential (primary) hypertension; I25.10 Atherosclerotic heart disease of native coronary artery without angina pectoris; Z95.5 Presence of coronary angioplasty implant and graft; E78.5 Hyperlipidemia, unspecified; I73.9 Peripheral vascular disease, unspecified; Z86.711 Personal history of pulmonary embolism; Z79.01 Long term (current) use of anticoagulants; D50.9 Iron deficiency anemia, unspecified
CPT/HCPCS: 36415; 71045; 71275; 78452; 80048; 80053; 80061; 81003; 82550; 82553; 83540; 83880; 84439; 84443; 84484; 85025; 93005; 93017; 97161; 97167; 99285; A9500; A9505; G0378; J2270; J2785; J7030; Q9967